=== PATIENT | female | born 1980 | race Caucasian/White ===

== ENCOUNTER 2020-04-01 21:53 | Emergency (ER) | payer BC, SELFPAY ==
[2020-04-01 21:54] VITALS: BP 149/73; PULSE 67; RESP 18; TEMP 36.5; O2SAT 100; BMI 30.7
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
[2020-04-01] MEDS: Ondansetron ODT 4 MG Tablet PO (22:51)
[2020-04-01] MEDS: Ibuprofen 600 MG Tablet PO (22:52)
[2020-04-01] MEDS: HYDROcodone Bitartrate/Apap 5/325 Tablet PO (22:53)
[2020-04-01] MEDS: Diphth,Pertuss(Acell),Tet Vac 0.5 ML Vial IM (22:53)
== END 2020-04-01 23:30 | disposition home or self-care (01) ==
LOC: ED 22:42
PROVIDERS: Emergency Provider Emergency Medicine; PCP Family Medicine
DX: T23.232A Burn of second degree of multiple left fingers (nail), not including thumb, initial encounter (principal); T23.231A Burn of second degree of multiple right fingers (nail), not including thumb, initial encounter; T23.162A Burn of first degree of back of left hand, initial encounter; T23.161A Burn of first degree of back of right hand, initial encounter; T31.0 Burns involving less than 10% of body surface; Z23 Encounter for immunization
CPT/HCPCS: 90715; 96372; 99283

== ENCOUNTER 2021-03-13 19:07 | Emergency (ER) | payer BC, SELFPAY ==
[2021-03-13 19:09] VITALS: BP 131/78; PULSE 64; RESP 14; TEMP 36; O2SAT 98; BMI 32.1
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
== END 2021-03-13 20:07 | disposition home or self-care (01) ==
PROVIDERS: Emergency Provider Emergency Medicine; PCP Family Medicine
DX: S90.01XA Contusion of right ankle, initial encounter (principal); W55.12XA Struck by horse, initial encounter; Y93.52 Activity, horseback riding; Y92.89 Other specified places as the place of occurrence of the external cause; Y99.8 Other external cause status
CPT/HCPCS: 73610; 99282

== ENCOUNTER → 2021-03-30 14:50 | Outpatient (CLI) | payer BC, SELFPAY ==
[2021-03-13 19:09] VITALS: BMI 32.1
--- NOTE | 2021-03-30 14:52 | RAD_ITS ---
STUDY: X-RAY - RIGHT FOOT CLINICAL: Female, 40 years old. Right foot pain. TECHNIQUE: 3 view(s) of the foot. COMPARISON: None. FINDINGS: Small inferior calcaneal spur. Normal visualized subtalar, talonavicular, calcaneocuboid, tarsal and tarsometatarsal articulations. Normal metatarsi. Normal metatarsophalangeal joint of the great toe. Normal tibial and fibular sesamoid bones. Normal interphalangeal joint of the great toe. Normal phalanges of the great toe. Normal second through fifth metatarsophalangeal joints. Normal interphalangeal joints and phalanges of the lesser toes. The soft tissue structures are unremarkable. RAD/Foot min 3 Views IMPRESSION: Small inferior calcaneal spur. No acute abnormality, erosive changes or periostitis. Electronically Signed: Oliver Posada MD at 10:49 EDT , Service support ,
== END ==
LOC: MTRAD 14:51
PROVIDERS: PCP Family Medicine; Referring Provider Family Medicine; Visit Provider Family Medicine
DX: M79.671 Pain in right foot (principal)
CPT/HCPCS: 73630

== ENCOUNTER → 2021-07-22 07:50 | Outpatient (CLI) | payer BC, SELFPAY ==
[2021-07-22 10:56] LABS: Anion Gap 5 (5-15); BUN 14 mg/dL (7-18); BUN/Creat Ratio 19.7 RATIO (10-20); Calcium,Total 8.5 mg/dL (8.5-10.1); Chloride 107 mmol/L (98-107); Cholesterol 149 mg/dL (200); Creatinine, Serum 0.71 mg/dL (0.55-1.02); EST Glomerular Filtration Rate 97 mL/min (>60); Est Glom Filt Rate - Afr Amer 117 mL/min (>60); Glucose 92 mg/dL (74-106); High Density Lipoprotein 53 mg/dL; Potassium 3.9 mmol/L (3.5-5.1); Sodium Level 140 mmol/L (136-145); Triglycerides 112 mg/dL; Very Low Density Lipoprotein 22 mg/dL (5-40)
== END ==
PROVIDERS: PCP Family Medicine; Referring Provider Family Medicine; Visit Provider Family Medicine
DX: Z13.1 Encounter for screening for diabetes mellitus (principal); Z13.220 Encounter for screening for lipoid disorders
CPT/HCPCS: 36415; 80048; 80061

== ENCOUNTER → 2024-08-12 | Outpatient (CLI) | payer BC, SELFPAY ==
[2024-08-12 12:36] LABS: ALB/GLOB Ratio 0.9 RATIO (0.9-2.4); AST(SGOT) 17 U/L (15-37); Alanine Aminotransfer ALT/SGPT 18 U/L (13-56); Albumin, Serum 3.1 g/dL (3.2-5.0); Alkaline Phosphatase 70 U/L (45-117); Anion Gap 6 (5-15); BUN 12 mg/dL (7-18); BUN/Creat Ratio 15.3 RATIO (10-20); Calcium,Total 8.7 mg/dL (8.5-10.1); Chloride 108 mmol/L (98-107); Creatinine, Serum 0.78 mg/dL (0.55-1.02); EST Glomerular Filtration Rate 85 mL/min (>60); Est Glom Filt Rate - Afr Amer 103 mL/min (>60); Globulin 3.4 g/dL (2.2-4.2); Glucose 91 mg/dL (74-106); Potassium 3.5 mmol/L (3.5-5.1); Protein, Total 6.5 g/dL (6.4-8.2); Sodium Level 139 mmol/L (136-145)
== END | disposition home or self-care (01) ==
LOC: MFPLAB 09:24
PROVIDERS: PCP Family Medicine; Referring Provider Family Medicine; Visit Provider Family Medicine
DX: R10.13 Epigastric pain (principal)
CPT/HCPCS: 36415; 80053

== ENCOUNTER → 2024-09-12 | Outpatient (CLI) | payer BC, SELFPAY | END | disposition home or self-care (01) | PROVIDERS: PCP Family Medicine; Referring Provider Family Medicine; Visit Provider Family Medicine | DX: R13.10 Dysphagia, unspecified (principal) | CPT/HCPCS: 74221 ==

== ENCOUNTER 2025-03-28 11:44 | Day surgery (SDC) | payer BC, SELFPAY ==
[2025-03-28] VITALS (9 sets, daily range): BP systolic 93–127; BP diastolic 61–90; PULSE 50–77; RESP 16–18; TEMP 36.1–36.8; O2SAT 95–100; BMI 31.5
[2025-03-28] MEDS: Lactated Ringers 1,000 ML 15 ML IV (12:11)
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
--- NOTE | 2025-03-28 12:30 | EGD_PTH ---
PATIENT: LIZZ STAUFFER LOC: EN U#:[id number] AGE/SX: 44/F ROOM: RE03/28/[address]: Dr. Bowen Rodgers DO : 1980 BED: DIS: 03/28/2025 SPEC #: [id number] RECD: 03/28/25 13:41 STATUS: CHENTE REShawn #: [id number] NING: 03/28/25 12:[address]: Bowen Rodgers DEPT: SURGICAL PATHOLOGY RECD BY: Shaheed Pardo ENTERED: 03/28/25 15:41 SP TYPE: EGD BIOPSY JEREMIAH DR: Dr. Kb Silver MD Tissues: A - Gastric mucous membrane B - Gastric mucous membrane C - Esophagus, NOS Procedures: Immunohistochemical Stains Surgery Specimen Level IV HEADER OPERATION: EGD with biopsies and dilation PRE-OP DIAGNOSIS: Dysphagia, epigastric pain, nausea TISSUE SUBMITTED: A- Gastric antrum biopsy, B- Gastric body biopsy, C- Random esophagus biopsy MICROSCOPIC DIAGNOSIS A. Gastric antrum, biopsy: - Chronic gastritis with features of reactive gastropathy. - Focal intestinal metaplasia, negative for dysplasia. - IHC negative for H pylori organisms. B. Gastric body, biopsy: Mild chronic inflammation. Negative for Helicobacter-like organisms (H&E). C. Esophagus, random, biopsy: * Squamous mucosa negative for eosinophils. MICROSCOPIC DESCRIPTION Slides are reviewed. All matched controls reacted appropriately. These tests were developed and their performance characteristics determined by [facility]. They may not have been cleared or approved by the U.S. Food and Drug Administration. The FDA has determined that such clearance or approval is not necessary. The above immunohistochemical/dualISH markers are viewed by the Pathologist. GROSS DESCRIPTION A. Received in fixative is one container labeled with the patient's name and designated Gastric antrum biopsy. The specimen consists of two irregular fragments of light escobedo soft tissue that measure 0.3 and 1.0 cm. The specimen is totally submitted in one cassette. B. Received in fixative is one container labeled with the patient's name and designated Gastric body biopsy. The specimen consists of four irregular fragments of light escobedo soft tissue that measure <0.1 to 0.5 cm. Smaller fragments may not survive processing. The specimen is totally submitted in one cassette. C. Received in fixative is one container labeled with the patient's name and designated Random esophagus biopsy. The specimen consists of multiple irregular fragments of light escobedo soft tissue that in aggregate measure 0.4 x 0.4 x <0.1 cm. The specimen is totally submitted in one cassette. IN 03/28/2025 CPT:63125r3,[id number]
--- NOTE | 2025-03-28 12:44 | PRE.ANES_ITS ---
ASA Classification* ASA Classification ASA Classification: 2 Assessment & Plan Anesthesia* Anesthesia Assessment Anesthesia Assessment: Discussed sedation and/or anesthesia options, risks, benefits, and alternatives with patient/parents/legal guardian/POA. Questions invited. The patient/parents/legal guardian/POA seems to understand and agrees to proceed with anesthesia plan. Reviewed the physical assessment, medical history, allergy history and patient home medications list prior to surgery/procedure/anesthetic and documented any changes. Performed airway and anesthesia risk assessments. Anesthesia Type Anesthesia Type: MAC History Source History Obtained from:: Patient and Chart Anesthesia Focused Assessment* Temperature: 97.3 F Pulse Rate: 77 Blood Pressure: 127/90 Respiratory Rate: 18 Pulse Ox: 98 Oxygen Delivery Method: Room Air Airway Assessment Mouth opens: >3 cm Mallampati Score: IV Teeth Condition: Caps/Crowns (Patient has a couple crowns. 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 When Was Last Pacemaker Check QUESTION #4 FULL TEXT: You/Your Family Experience fever (hyperthermia) with Anesthesia Last Oral Intake Last Oral intake: Last Oral Intake NPO since 22:30 03/28/25 12:01 Meds taken in AM with sips of water? 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 Female Yes 03/25/25 10:13 HX of Motion Sickness Yes 03/25/25 10:13 HX of N/V After Surgery No 03/25/25 10:13 Non-Smoker Yes 03/25/25 10:13 Duration of Surgery greater No 03/25/25 10:13 than 60 minutes Number of Risk Factors 3 03/25/25 10:13 PONV Score Moderate Risk 03/25/25 10:13 Height & Weight Height & Weight: Anesthesia: Height & Weight Height 5 ft 5 in 03/28/25 12:01 Weight: 86 kg 03/28/25 12:01 Body Mass Index (BMI) 31.5 03/28/25 12:01 Respiratory Assessment Respiratory Assessment - yard labor supervisor: Respiratory Tract Infection Hx - yard labor supervisor Hx Respiratory Tract Infection No 03/25/25 10:13 STOP Sleep Apnea STOP Sleep Apnea - yard labor supervisor: STOP Sleep Apnea - yard labor supervisor Hx Hypertension No 03/25/25 10:13 Hx Sleep Apnea No 03/25/25 10:13 CPAP BIPAP Do you snore loudly (louder No 03/25/25 10:13 than talking or can be heard Do you often feel tired/ No 03/25/25 10:13 fatigued/ sleepy during daytime? Has anyone observed you stop No 03/25/25 10:13 breathing during sleep? STOP Results Negative 03/25/25 10:13 QUESTION #5 FULL TEXT : Do you snore loudly (louder than talking or can be heard through closed doors)? 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 Specify any problems Hx of Preganancy in last 3 No 03/25/25 10:13 Months Nurse Filling Out Transfusion [id number] 03/25/25 10:13 & Questions: Date: 03/25/25 03/25/25 10:13 Time: 10:15 03/25/25 10:13 Patient unable to answer at this time (ie. confused, unrespo /Reproduction History /Reproductive History - yard labor supervisor: /Reproductive Hx- yard labor supervisor Hx Now No 03/25/25 10:13 Gestational Age (in weeks): EDC: Hx Hx Para Hx Section SAB No 03/25/25 10:13 Active Medications Active Medications: Current Medications Generic Name Dose Route Start Last Admin Trade Name Freq PRN Reason Stop Dose Admin Lactated Ringer's 1,000 mls @ 15 mls/hr 03/28/25 12:00 03/28/25 12:11 IV 15 mls/hr .Q48H QUEENIE Administration PFSH Medical History Wears contact lenses Anxiety Chronic cough Non-smoker Gastric reflux Chronic sinusitis Plantar fasciitis Burn of left hand Home Medications ?Medication ?Instructions ?Recorded ?Last Taken ?Type fexofenadine 60 mg tablet (Tana 60 mg PO BID 03/27/25 History Allergy) fluticasone propionate 50 1 spray intranasal QDAY 12/1303/27/25 History mcg/actuation nasal spray,suspension hydroxyzine pamoate 25 mg capsule 25 mg PO TID PRN anx iety 01/22/25 Unknown History (Vistaril) multivitamin 1 tab PO QDAY 01/22/2503/27 History desogestrel 0.15 mg-ethinyl 1 tab PO QDAY 01/23/2503/14 History estradiol 0.03 mg tablet (Apri) pantoprazole 40 mg tablet,delayed 40 mg PO QDAY 03/27/25 History release (Protonix) sucralfate 1 gram tablet (Carafate) 1 g PO QACHS PRN e pigastric pain 01/23/25 Unknown Rx #60 tabs Allergy/AdvReac Type Severity Reaction Status Date / Time influenza A (H1N1) virus Allergy Severe Anaphylaxis Verified 03/28/25 11:59 vaccine m-torres-split 2008 (From influenza A (H1N1)) adhesive tape Allergy Rash Verified 03/28/25 11:59 cefuroxime (From Ceftin) Allergy Rash Verified 03/28/25 11:59 Penicillins Allergy Rash Verified 03/28/25 11:59 codeine AdvReac Vomiting Verified 03/28/25 11:59 hydrocodone (From Vicodin) AdvReac Vomiting Verified 03/28/25 11:59 oxycodone (From Percocet) AdvReac PT UNSURE Verified 03/28/25 11:59 OF REACTION Family History Aunt Cancer Brother Hypertension Obesity Grandfather CAD (coronary artery disease) Hypertension Arthritis CVA (cerebral vascular accident) Alcoholism Kidney disease Grandmother Diabetes Cancer Arthritis Breast cancer Obesity Father Arthritis Diabetes Obesity Mother Hypertension Diabetes Arthritis Obesity Cancer Surgical History History of tonsillectomy H/O adenoidectomy H/O myringotomy H/O fasciotomy History of elbow surgery H/O knee surgery H/O tubal ligation Social History Smoking Status: Never smoker alcohol intake: current alcohol intake frequency: holidays/special occasions only substance use type: does not use what type of physical activity do you participate in: walking Review of Systems (Anesthesia) ROS Narrative System reviewed and no additional complaints, except as documented.
[2025-03-28] MEDS: fentaNYL 100 MCG/2 ML Ampul IV (13:10)
--- NOTE | 2025-03-28 13:32 | PCM.POST.ANE ---
Anesthesia: Postop Eval I Current Vital Signs Temperature: 96.9 F Pulse Rate: 63 Blood Pressure: 110/77 Respiratory Rate: 18 Pulse Ox: 95 Assessment Airway patent: Yes Spontaneous unlabored respirations: Yes nausea: No Vomiting: No Anesthesia Complication: No Fluid Hydration Crystalloid volume administer (ml): 200 Total IV fluid infused: 200 Progress Note Anesthesia document: Postop Eval 1 completed: Yes
--- NOTE | 2025-03-28 13:36 | OP.PROVAT_ITS ---
03/28/2025 Timothy Silver [address] [place] [address] Re : Upper GI endoscopy procedure for Laury Jimenez Dear Dr. Silver This procedure was performed on Friday, March 28, 2025. My impressions and recommendations are as follows: Impressions : - Abnormal esophageal motility. Dilated. - No gross lesions in the entire stomach. Biopsied. - No gross lesions in the entire examined duodenum. - Biopsies were taken with a cold forceps for evaluation of eosinophilic esophagitis. Recommendations : - Discharge patient to home. - Resume previous diet. - Continue present medications. - Await pathology results. My findings are described in the full procedure note, which is enclosed. If I can be of further assistance, please feel free to contact me at . Sincerely, Bowen Rodgers, 03/28/2025 1:35:49 PM This report has been signed electronically.
--- NOTE | 2025-03-28 13:36 | OP.EGD_ITS ---
Patient Name: Laury Jimenez Procedure Date: 03/28/2025 1:07 PM Date of : 1980 Age: 44 Procedure: Upper GI endoscopy Indications: Epigastric abdominal pain, Dysphagia Providers: Bowen Rodgers DO Referring MD: Timothy Silver Medicines: Monitored Anesthesia Care Patient Profile: This is a 44 year old female. Refer to note in patient chart for documentation of history and physical. Patient has symptoms of chronic abdominal distention, chronic epigastric abdominal pain, dysphagia with both liquids and solids, acute dyspepsia and chronic nausea. Complications: No immediate complications. Procedure: Pre-Anesthesia Assessment: - Prior to the procedure, a History and Physical was performed, and patient medications and allergies were reviewed. The patient is competent. The risks and benefits of the procedure and the sedation options and risks were discussed with the patient. All questions were answered and informed consent was obtained. Patient identification and proposed procedure were verified by the physician in the pre-procedure area. Mental Status Examination: alert and oriented. Airway Examination: normal oropharyngeal airway and neck mobility. Respiratory Examination: clear to auscultation. CV Examination: normal. Prophylactic Antibiotics: The patient does not require prophylactic antibiotics. Prior Anticoagulants: The patient has taken no anticoagulant or antiplatelet agents except for NSAID medication. ASA Grade Assessment: II - A patient with mild systemic disease. After reviewing the risks and benefits, the patient was deemed in satisfactory condition to undergo the procedure. The anesthesia plan was to use monitored anesthesia care (MAC). Immediately prior to administration of medications, the patient was re-assessed for adequacy to receive sedatives. The heart rate, respiratory rate, oxygen saturations, blood pressure, adequacy of pulmonary ventilation, and response to care were monitored throughout the procedure. The physical status of the patient was re-assessed after the procedure. After obtaining informed consent, the endoscope was passed under direct vision. Throughout the procedure, the patient's blood pressure, pulse, and oxygen saturations were monitored continuously. The gastroscope was introduced through the mouth, and advanced to the second part of duodenum. The upper GI endoscopy was accomplished without difficulty. The patient tolerated the procedure well. Scope In: 1:14:41 PM Scope Out: 1:23:44 PM Total Procedure Duration Time 0 hours 9 minutes 3 seconds Findings: Abnormal motility was noted in the esophagus. The cricopharyngeus was abnormal. There are extra peristaltic waves in the esophageal body. The distal esophagus/lower esophageal sphincter is spastic, but gives up passage to the endoscope. Tertiary peristaltic waves are noted. A guidewire was placed and the scope was withdrawn. Dilation was performed with a Savary dilator with no resistance at 57 Fr. The dilation site was examined and showed moderate improvement in luminal narrowing. Estimated blood loss was minimal. Biopsies were obtained from the proximal and distal esophagus with cold forceps for histology of suspected eosinophilic esophagitis. No gross lesions were noted in the entire examined stomach. Biopsies were taken with a cold forceps for histology. Verification of patient identification for the specimen was done. Estimated blood loss was minimal. Biopsies were taken with a cold forceps for Helicobacter pylori testing. Verification of patient identification for the specimen was done. Estimated blood loss was minimal. No gross lesions were noted in the entire examined duodenum. Impression: - Abnormal esophageal motility. Dilated. - No gross lesions in the entire stomach. Biopsied. - No gross lesions in the entire examined duodenum. - Biopsies were taken with a cold forceps for evaluation of eosinophilic esophagitis. Recommendation: - Discharge patient to home. - Resume previous diet. - Continue present medications. - Await pathology results. Procedure Code(s): --- Professional --- 29888, Esophagogastroduodenoscopy, flexible, transoral; with insertion of guide wire followed by passage of dilator(s) through esophagus over guide wire 33097, 59,51, Esophagogastroduodenoscopy, flexible, transoral; with biopsy, single or multiple CPT copyright 2021 [employer]. All rights reserved. The codes documented in this report are preliminary and upon edge trimmer review may be revised to meet current compliance requirements. Bowen Rodgers DO 03/28/2025 1:35:49 PM This report has been signed electronically. Number of Addenda: 0 Note Initiated On: 03/28/2025 1:07 PM
== END 2025-03-28 14:16 | disposition home or self-care (01) ==
LOC: EN 11:45 → AC 11:47
PROVIDERS: PCP Family Medicine; Referring Provider Family Medicine; Visit Provider Internal Medicine Gastroenterology
PROC: 0DJ08ZZ Inspection of Upper Intestinal Tract, Via Natural or Artificial Opening Endoscopic (ICD-10-PCS; CPT 43235; principal; 2025-03-28 12:25)
DX: K22.4 Dyskinesia of esophagus (principal); K31.A11 Gastric intestinal metaplasia without dysplasia, involving the antrum; R13.10 Dysphagia, unspecified; K29.50 Unspecified chronic gastritis without bleeding; K21.9 Gastro-esophageal reflux disease without esophagitis; Z79.899 Other long term (current) drug therapy
CPT/HCPCS: 43248; 43239; 88305; A4216; C1769; J2405

== ENCOUNTER 2025-04-04 23:44 | Emergency (ER) | payer BC, SELFPAY ==
[2025-04-04 23:46] VITALS: BP 129/82; PULSE 53; RESP 16; TEMP 36.8; O2SAT 100; BMI 32.1
--- NOTE | 2025-04-05 00:19 | ED.VIS.FALL ---
HPI HPI - Fall History of Present Illness Chief Complaint: Fall Informant: patient Narrative Narrative: 44-year-old female presents to the ER after an accidental fall. She was at home, she states she tripped over the dog and then the floor was wet causing her to slip as she skated into the couch and smacked her face into it, injuring her nose and had a nosebleed. She was blowing clots out of her nose prior to coming here, but the bleeding to stop now. She takes no antiplatelet or anticoagulants. She also injured her left middle finger and scraped her left knee but has had no problems standing or walking since then. She denies any significant pain in her face or head other than her nose which is sore. She denies any vision changes. There is no loss of consciousness, nausea, vomiting. No other injuries. She [id number]. [facility] Medical History Wears contact lenses Anxiety Chronic cough Non-smoker Gastric reflux Chronic sinusitis Plantar fasciitis Burn of left hand Home Medications ?Medication ?Instructions ?Recorded ?Last Taken ?Type fexofenadine 60 mg tablet (Tana 60 mg PO BID 01/22/25 03/27/25 History Allergy) fluticasone propionate 50 1 spray intranasal QDAY 01/22/25 03/27/25 History mcg/actuation nasal spray,suspension hydroxyzine pamoate 25 mg capsule 25 mg PO TID PRN anxiety 01/22/25 Unknown History (Vistaril) multivitamin 1 tab PO QDAY 01/22/25 03/27/25 History desogestrel 0.15 mg-ethinyl 1 tab PO QDAY 01/23/25 03/27/25 History estradiol 0.03 mg tablet (Apri) pantoprazole 40 mg tablet,delayed 40 mg PO QDAY 01/23/25 03/27/25 History release (Protonix) sucralfate 1 gram tablet (Carafate) 1 g PO QACHS PRN epigastric pain 01/23/25 Unknown Rx #60 tabs Allergy/AdvReac Type Severity Reaction Status Date / Time influenza A (H1N1) virus Allergy Severe Anaphylaxis Verified 04/04/25 23:45 vaccine m-torres-split 2008 (From influenza A (H1N1)) adhesive tape Allergy Rash Verified 04/04/25 23:45 cefuroxime (From Ceftin) Allergy Rash Verified 04/04/25 23:45 Penicillins Allergy Rash Verified 04/04/25 23:45 codeine AdvReac Vomiting Verified 04/04/25 23:45 hydrocodone (From Vicodin) AdvReac Vomiting Verified 04/04/25 23:45 oxycodone (From Percocet) AdvReac PT UNSURE Verified 04/04/25 23:45 OF REACTION Family History Aunt Cancer Brother Hypertension Obesity Grandfather CAD (coronary artery disease) Hypertension Arthritis CVA (cerebral vascular accident) Alcoholism Kidney disease Grandmother Diabetes Cancer Arthritis Breast cancer Obesity Father Arthritis Diabetes Obesity Mother Hypertension Diabetes Arthritis Obesity Cancer Surgical History History of tonsillectomy H/O adenoidectomy H/O myringotomy H/O fasciotomy History of elbow surgery H/O knee surgery H/O tubal ligation Social History Smoking Status: Never smoker alcohol intake: current alcohol intake frequency: holidays/special occasions only substance use type: does not use what type of physical activity do you participate in: walking ROS ROS ED Constitutional Constitutional ED: Denies chills or fever(s) Eyes Eyes: Denies change in vision or diplopia ENT ENT ED: Reports epistaxis and facial pain; Denies ear pain or rhinorrhea Cardiovascular Cardiovascular: Denies chest pain or palpitations Respiratory/Chest Respiratory/Chest: Denies cough or dyspnea Gastrointestinal Gastrointestinal: Denies abdominal pain, diarrhea, melena, nausea or vomiting Genitourinary Genitourinary ED: Denies dysuria or hematuria Musculoskeletal Musculoskeletal: Reports extremity pain; Denies back pain or neck pain Integumentary Reports Abrasions; Denies abscess, laceration or rash Neurologic Neurologic: Denies confusion, headache(s), paresthesias or weakness EXAM Physical Exam Const Vital Signs: 04/04/25 23:46 04/04/25 23:49 Temperature 98.3 F Temperature Source Oral Pulse Rate 53 L Respiratory Rate 16 Respiratory Effort Normal Non-Labored Respiratory Depth Normal Respiratory Pattern Normal Blood Pressure 129/82 H Blood Pressure Mean 97 Pulse Ox 100 Oxygen Delivery Method Room Air Positive well nourished and well developed General Appearance ED: well developed and NAD HEENT Reports nasal mucous membranes and turbinates normal HEENT Narrative: No Lincoln sign, no raccoon eyes, no CSF otorhinorrhea, no hemotympanum. 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 There are scars in both TMs. There is no otorrhea. She has nasal bone tenderness without swelling, asymmetry, crepitance. The tenderness is mild. There is evidence of dried blood in both nares no active bleeding. No septal hematoma or perforation. No posterior oropharyngeal blood, no dental injury, no mid facial tenderness other than the nose. No signs of orbital trauma. atraumatic Face and Sinus: facial tenderness Eyes PERRL and EOMs intact bilaterally Visual Acuity: other Other Details: no entrapment or pain with extraocular movements Neck full ROM and supple General: Negative for tenderness Chest Wall inspection of chest normal and palpation of chest normal Chest: symmetrical chest wall rise; Negative for crepitus or tenderness Resp normal respiratory effort and clear to auscultation bilaterally Percussion: other equal BS bilat Cardio no murmurs Rate: regular rate Rhythm: regular rhythm GI normal to inspection, nondistended, normoactive bowel sounds, soft to palpation and non-tender Back/Spine normal ROM Cervical Spine: Negative for cervical spine tenderness Thoracic Spine / Upper Back: Negative for thoracic spinal tenderness Lumbar Spine / Lower Back: Negative for lumbar spinal tenderness Extremity normal to inspection and full ROM Extremity Narrative: Tender left middle finger PIPJ and distal phalanx. There is a mild valgus deformity at the DIPJ that the patient states is chronic and no different than usual. FDS, FDP, extensor are all intact. Full range of motion of that finger and all of the rest which are noninjured nontender. There is an abrasion over the lateral aspect of the left anterior knee, the bones are all nontender there is no effusion, she has full range of motion, all ligaments are stable and without pain on stressing. General Extremety ED: Yes tenderness Neuro oriented x3, CN's II-XII intact bilaterally, moves all extremities, no focal motor deficits and no sensory deficits noted Zenon Coma Scale: document GCS findings Spontaneous Obeys Commands Oriented 15 Sensorium / Orientation: awake and alert Psych mental status grossly normal and thought process normal Skin no wounds Skin Narrative: Abrasion left knee otherwise no signs of trauma. Lesions: no lesions Rashes: no rashes MDM MDM MDM Narrative Medical decision making narrative: Patient does not have any swelling or asymmetry of the nose, my suspicion for nasal fracture is low. However, I discussed with her that even if it is broken and the treatment recommendations would be the same which is supportive care. I reassured her she can have epistaxis without breaking her nasal bone. I am not worried about the rest of the midface or any other facial bones, so I do not think that she requires a CT or imaging of the nose at this time and we discussed that she is comfortable with that. We did obtain three-view x-ray series of the left middle finger which I am interpretation are negative for acute fractures. Her knee is scraped but there is no significant injury to it so we skipped x-rays and she was comfortable with that. Nurses cleansed and dressed that, she was given ibuprofen, and ENT referral just in case she has any cosmetic issues that were not discovered here with regards to her nose. Discharge Plan Triage Chief Complaint: Fall Other Complaint: Nosebleed ED Provider: Mohamud Pham Dx/Rx/DC Orders Clinical Impression: Epistaxis due to trauma, Contusion of nose, initial encounter, Contusion of left middle finger without damage to nail, initial encounter, Abrasion, left knee, initial encounter, Fall from slip, trip, or stumble Instructions: ED NASAL CONTUSION vs FX No X-ray Prescriptions: No Action multivitamin Tablet 1 tab PO QDAY fluticasone propionate 50 mcg/actuation spray,suspension 1 spray intranasal QDAY Rx Instructions: administer into each nostril hydroxyzine pamoate [Vistaril] 25 mg capsule 25 mg PO TID PRN (Reason: anxiety) fexofenadine [Tana Allergy] 60 mg tablet 60 mg PO BID desogestrel-ethinyl estradiol [Apri] 0.15-0.03 mg tablet 1 tab PO QDAY pantoprazole [Protonix] 40 mg tablet,delayed release (DR/EC) 40 mg PO QDAY sucralfate [Carafate] 1 gram tablet 1 g PO QACHS PRN (Reason: epigastric pain) Qty: 60 0RF Primary Care Provider: Kb Silver Referrals: Kb Silver MD [Primary Care Provider] - Elmer Tello MD [Med Staff - Active Staff] - 1 Week if not improving Activity Restrictions/Additional Instructions: Your nose is unlikely to be broken given the lack of swelling or asymmetry. If you develop any of this and you are concerned, you may either return to the ER for imaging, or follow-up with ENT if it does not go back to normal after a week. If you have nosebleeds that are not stopping return to the ER. In the meantime ice pack to the affected area, Tylenol and/or ibuprofen as needed for pain. Print Language: Yoruba Disposition Disposition: Home, Self Care
--- NOTE | 2025-04-05 00:20 | RAD_ITS ---
PROCEDURE: FINGER(S) MIN 2 VIEWS 04/05/2025 REASON FOR EXAM: TRAUMA TECHNIQUE: FINGER(S) MIN 2 VIEWS Laterality: Left COMPARISON: None FINDINGS: Bones: Acute questionable lucent fracture line is seen at the base of the middle phalanx of the 3rd finger, associated soft tissue swelling is seen. Joints: Preserved joints RAD/Finger(s) Min 2 Views IMPRESSION: Acute questionable lucent fracture line is seen at the base of the middle phala nx of the 3rd finger, associated soft tissue swelling . Reading [facility] [address]
--- OUTSIDE RECORDS SUMMARY | 2025-04-05 00:28 | XMS RPT_ITS | CCD ---
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 fluticasone propionate 50 1 spray intranasal QDAY 01/22/25 0 01/23/25 History mcg/actuation nasal spray,suspension hydroxyzine pamoate 25 mg capsule 25 mg PO TID 01/22/25 01/23/25 Hi story (Vistaril) multivitamin 1 tab PO QDAY 01/22/25 01/23/25 Hi story desogestrel 0.15 mg-ethinyl 1 tab PO QDAY 01/23/25 01/23/25 Hi story estradiol 0.03 mg tablet (Apri) pantoprazole 40 mg tablet,delayed 40 mg PO QDAY 01/23/25 01/23/25 H istory release (Protonix) sucralfate 1 gram tablet (Carafate) 1 g PO QACHS PRN epigastric curtis n 01/23/25 01/23/25 Rx #60 tabs Nurse's Note: Food gets stuck in her throat and has already choked before. Has some abdominal discomfort and nausea. [facility] History Chronic sinusitis Plantar fasciitis Burn of left hand Surgical History History of tonsillectomy H/O adenoidectomy H/O myringotomy H/O fasciotomy History of elbow surgery H/O knee surgery H/O tubal ligation Family History Aunt Cancer Brother Hypertension Obesity Grandfather CAD (coronary artery disease) Hypertension Arthritis CVA (cerebral vascular accident) Alcoholism Kidney disease Grandmother Diabetes Cancer Arthritis Breast cancer Obesity Father Arthritis Diabetes Obesity Mother Hypertension Diabetes Arthritis Obesity Cancer Social History Smoking Status: Never smoker alcohol intake: current alcohol intake frequency: holidays/special occasions only substance use type: does not use what type of physical activity do you participate in: walking HPI HPI Chief Complaint: food gets stuck in my throat Details: LAURY JIMENEZ, is a 44 F who presents to the office today for Laura - >1 year stomach pain, reports she was taking her husbands Omeprazole 40mg daily, this did not help, epigastric and LUQ, burning/aching/stabbi ng, no change with PO intake - reports pain was constant, but since August she is only having pain a few days a month - Carafate 1g tablets QID, 10d course and this did help - Protonix 40mg QD - reports a long history of upper esophageal dysphagia - reports a Esophagram August 2024 was negative + nausea - emesis - denies any weight loss - little caffeine intake - denies smoking - denies any marijuana use - limited alcohol use - no change in bowel habits ROS Const Constitutional: No fatigue, fever(s) or weight change ENT ENT: No difficulty swallowing Gastro GI: No abdominal pain, belching, bloating, change in bowel habits, change in stool character, coffee ground emesis, constipation, cramping, diarrhea, heartburn, difficulty swallowing, feeling full early, excessive flatus, incontinent of stools, Vomiting blood/hematemesis, Blood in stool, loose stools, Black,tarry stools, nausea/dyspepsia, pain with swallowing, vomiting or other Musc Musculoskeletal: No joint pain Skin Skin: No yellowing of the eye or itchy eyes Psych Psychiatric: No anxiety and No depression Endo Endocrine: No fatigue or weight change Aller/Imm Allergy/Immunologic: No itchy eyes Paulino/Lymp (more content not included)... Normal [facility] CNOVon 10-07-2024 CNOV Office Visit (OBGYWM ) LAURY JIMENEZ E ([id number]) 1980 F Date Time Provider Department 10/07/24 1:00 PM KAYLA CADET OBGYWM During your visit today, we recorded the following information about you: Blood pressure Weight Height 124/76 88.5 kg 1.651 m Kayla Cadet APRN.ACCOUNT SPECIALIST 10/07/2024 2:34 PM Signed Patient declined bill adjuster. Laura is a 44 year old who presents for an annual gynecologic exam without complaints. Isaiah had 3 wks of spotting nothing since Menses: no menses - continuous OCPs. Contraception: tubal sterilization HPV vaccine: No Last Pap: 09/2023 normal HPV: 09/2023 negative History of abnormal pap: Yes Last mammogram: 2024 pending Sexually active: Yes Pain with intercourse: No Postcoital bleeding: No OB History Gravida3 Para2 Term2 Preterm0 AB1 Living2 SAB1 IAB0 Ectopic0 Multiple0 Live Births0 Comment: Menarche 11, lmp 12/18/2010 Facilities Painter History LMP: 01/10/2021, Drug Induced Amenorrhea Age at Menarche: 11 Age at First : Age at Menopause: Facilities Painter History Comments: Sexual Activity: Yes; Male Contraception: Tubal Ligation PAST MEDICAL HISTORY Diagnosis Date Abnormal Pap smear 10/2008 follows with [facility] Women's health Cervical high risk human papillomavirus (HPV) DNA test positive Mild dysplasia of cervix (EMILEE I) colposcopy with bx Nipple discharge in female 09/2010 green PAST SURGICAL HISTORY Procedure Laterality Date ARTHROSCOPY KNEE SURGICAL W/LAT RELEASE 08/21/2008 left knee -Dr. Fahad SUBRAMANIAN OF CERVIX INC UPPER VAG PAST SURGICAL HISTORY OF 04/21/2011 Left foot Plantar PAST SURGICAL HISTORY OF Left 08/2019 left elbow tendon repair TONSILLECTOMY AND ADENOIDECTOMY TUBAL LIGATION, 08/21/2007 TYMPANOSTOMY LOCAL/TOPICAL ANESTHESIA x 3 FAMILY HISTORY Problem Relation Age of Onset Allergies Mother Cancer Mother endometrial -- 58 Diabetes Mother Lipids Father Diabetes Father prediabetes Cancer Maternal Grandmother brain and lung Diabetes Maternal Grandmother Breast Cancer Paternal Grandmother Heart Paternal Grandfather arrythmia Cancer Maternal Aunt thyroid SOCIAL HISTORY Social History Tobacco Use Smoking status: Never Smokeless tobacco: Never Vaping Use Vaping status: Never Used Substance Use Topics Alcohol use: Yes Comment: Occassionally Drug use: No REVIEW OF SYSTEMS Abdomen: No abdominal pain, nausea, vomiting, diarrhea, or constipation. No bloating, early satiety, indigestion, or increased flatulence. Bladder: No dysuria, gross hematuria, urinary frequency, urinary urgency, or incontinence. Breast: No breast lumps, nipple d/c, overlying skin changes, redness or skin retraction. Allergies and current medication updated:Yes SENSITIVE EXAM: The sensitive examination was discussed with the Patient or Patient's Authorized Security Project Manager. As applicable, any other physician, advance practice provider, medical student, or other health professional student that will be observing or involved in the sensitive examination for educational or training purposes was discussed with the Patient or Authorized Security Project Manager. The Patient or Authorized Security Project Manager has agreed to proceed with the sensitive examination. (Sensitive examination includes inspection and/or palpation of the breasts, pelvis, prostate and anorectal regions). EXAM: BP 124/76 Ht 5' 5 (1.65m) Wt 195 lb 3.2 oz (88.5kg) LMP 01/10/2021 BMI 32.48 kg/(m2). GENERAL: pleasant, female in no apparent distress HEENT: Normocephalic, atraumatic, mucus membranes moist, and no lesions DERMATOLOGY: Normal, without lesions, non-icteric, and non-hirsute BREAST: soft, non-tender, symmetric, no dominant mass, normal nipple-areolar complex, no lymphadenopathy, and no nipple discharge CHEST: Normal inspiratory effort ABDOMEN: soft, non-tender, and no masses PELVIC: external genitalia normal, normal Bartholin's glands, urethra, [place]'s glands, no vulvar lesions, no cervical lesions, physiologic discharge present, normal appearing perineal body and perianal region BIMANUAL: uterus normal size, shape and consistency, no adnexal masses, and non-tender RECTOVAGINAL: deferred. NEURO: alert and oriented x3,exam grossly non-focal EXTREMITIES: normal ASSESSMENT/PLAN: 1) Health maintenance: Pap/HPV up to date. Mammogram up to date . Nutrition, exercise and routine health maintenance exams reviewed. Calcium/Vitamin D supplementation information provided. Colon cancer screening: start at age 45 2) Contraception: tubal sterilization. Contraceptive options reviewed and information provided. 3) STD screening: Declined STD check. 4) Follow up one year or sooner as needed Kayla Helio, PASTRYCOOK'S ASSISTANT.ACCOUNT SPECIALIST Referring Provider: KAYLA CADET [[id number]] Allergies As of Date: 10/07/2024 Noted Allergy Reaction ADHESIVE T (more content not included)... Normal [facility] BONY SCREENING W TOMOon 10-07 BONY SCREENING W UMAIR * * *Final Report* * * DATE OF EXAM: Oct 07 2024 12:59PM [id number] - BONY SCREENING W UMAIR / PROCEDURE REASON: Encounter for screening mammogram for breast cancer * * * * Physician Interpretation * * * * RESULT: [facility] [address] [id number] #[id number] - BONY SCREENING W UMAIR HISTORY: 44 year-old patient seen for screening and is asymptomatic in both breasts. Patient states no personal history of breast cancer. Patient states no personal history of ovarian cancer. COMPARISON STUDIES: The present examination has been compared to a prior imaging study dated 11/19/2021 (mammogram). MAMMOGRAM TECHNIQUE: The study was acquired using full field digital technology and interpreted from soft copy. Digital Breast Tomosynthesis (DBT) images were obtained and used to assist in the interpretation of this examination. MAMMOGRAM FINDINGS: The breasts are heterogeneously dense, which may obscure small masses. No suspicious masses, calcifications or other abnormalities are seen in either breast. There are no significant interval changes. IMPRESSION: There is no mammographic evidence of malignancy in either breast. Routine screening mammogram is recommended. Annual mammogram will be due in 1 year. BI-RADS Category 1: Negative RISK: Based on the Tyrer-Cuzick (TC) risk assessment model, this patient has a 15.0% lifetime risk of developing breast cancer, meaning they are at average risk for developing breast cancer. However, this is only an estimate based on available history provided on the patient's questionnaire. We encourage all patients to talk with their providers about these results, further recommendations for managing breast health, and appropriate supplemental screening options if the patient has dense breast tissue. Interpreting Radiologist: Lore Lucas M.D. Electronically signed on: 10/08/2024 Steel Fabricating Supervisor: JENNIFER Transcribe Date/Time: Oct 07 2024 12:30P Dictated by: LORE LUCAS MD This examination was interpreted and the report reviewed and electronically signed by: LORE LUCAS MD on Oct 08 2024 8:05AM EST [id number] N Normal [facility] Esophagus Dual Contraston Esophagus Dual Contrast [facility] [address] [place] [address] Esophagus Dual Contrast MR#: [id number] Acct: [id number] Name: LAURY JIMENEZ Rep #: [id number] : 1980 F 43 From: Bradley joseph MD PCP: Dr. Kb Silver MD Status: [facility] CL Study: Esophagus Dual Contrast Date of Exam: 09/12/24 Exam# [id number] Ordering Dr: Kb Silver D [id number] STUDY: X-RAY - ESOPHAGUS (BARIUM SWALLOW) WITH FLUOROSCOPY REASON FOR EXAM: Female, 43 years old. Dysphagia TECHNIQUE: 38 fluoroscopic view(s) of the esophagus were obtained following swallowing of barium. FLUOROSCOPY TIME (if supplied): (33 seconds) minutes/seconds. 3.7 mGy. COMPARISON: None. FINDINGS: There is no demonstrated esophageal foreign body. There is no demonstrated stricture or mucosal abnormality. Normal gastroesophageal junction, without a demonstrated hiatal hernia. The patient ingested a 12 mm tablet of barium without any difficulty. Normal visualized aortic arch and descending thoracic aorta. Normal visualized pulmonary parenchyma. Normal visualized osseous structures of the thorax. RAD/Esophagus Dual Contrast IMPRESSION: Normal plain film x-ray examination (barium swallow) of the esophagus. Electronically Signed: Bradley Sorenson MD at 10:20 EST , CC: Dr. Kb Silver MD [employer] Fab[employer] Supervisor: Signed Normal [facility] Comprehensive Metabolic Prof ilon 08-12-2024 Albumin [Mass/Vol] 3.1 g/dL Low 3.2-5.0 [facility] Comment on above: Order Comment: Order Date: 08/12/24 Order Info: 0786-1 - CMP Performed By: #### L [id number] #### [facility] [address] [place], [address] Albumin/Globulin [Mass ratio] 0.9 {ratio} Normal 0.9-2.4 [facility] Comment on above: Order Comment: Order Date: 08/12/24 Order Info: 0786-1 - CMP Performed By: #### L [id number] #### [facility] [address] [place], [address] ALK P 70 U/L Normal 45-117 [facility] Comment on above: Order Comment: Order Date: 08/12/24 Order Info: 0786-1 - CMP Performed By: #### L [id number] #### [facility] [address] [place], [address] ALT [Catalytic activity/Vol] 18 U/L Normal 13-56 [facility] Comment on above: Order Comment: Order Date: 08/12/24 Order Info: 0786-1 - CMP Performed By: #### L [id number] #### [facility] [address] [place], [address] AST [Catalytic activity/Vol] 17 U/L Normal 15-37 [facility] Comment on above: Order Comment: Order Date: 08/12/24 Order Info: 0786-1 - CMP Performed By: #### L [id number] #### [facility] [address] [place], [address] Bilirubin [Mass/Vol] 0.80 mg/dL Normal 0.20-1.00 [facility] Comment on above: Order Comment: Order Date: 08/12/24 Order Info: 0786-1 - CMP Result Comment: For patients on eltrombopag therapy, use of Dimension [place] TBIL is not recommended. Performed By: #### L [id number] #### [facility] [address] [place], [address] BUN/CRE 15.3 RATIO Normal 10-20 [facility] Comment on above: Order Comment: Order Date: 08/12/24 Order Info: 0786-1 - CMP Performed By: #### L [id number] #### [facility] [address] [place], [address] CA,Total 8.7 mg/dL Normal 8.5-10.1 [facility] Comment on above: Order Comment: Order Date: 08/12/24 Order Info: 0786-1 - CMP Performed By: #### L [id number] #### [facility] [address] [place], [address] Chloride [Moles/Vol] 108 mmol/L High 98-107 [facility] Comment on above: Order Comment: Order Date: 08/12/24 Order Info: 0786-1 - CMP Performed By: #### L [id number] #### [facility] [address] [place], [address] CO2 [Moles/Vol] 25.0 mmol/L Normal 21.0-32.0 [facility] Comment on above: Order Comment: Order Date: 08/12/24 Order Info: 0786-1 - CMP Performed By: #### L [id number] #### [facility] [address] [place], [address] Creatinine [Mass/Vol] 0.78 mg/dL Normal 0.55-1.02 [facility] Comment on above: Order Comment: Order Date: 08/12/24 Order Info: 0786-1 - CMP Result Comment: The validity of the calculated GFR GFRAA in patients over 70 years has not been determined. Clinical correlation is essential. Performed By: #### L [id number] #### [facility] [address] [place], [address] EST GFR - AA 103 mL/min Normal >60 [facility] Comment on above: Order Comment: Order Date: 08/12/24 Order Info: 0786-1 - CMP Result Comment: Afri can Scottish GFR Calc Performed By: #### L [id number] #### [facility] [address] [place], [address] GAP 6 Normal 5-15 [facility] Comment on above: Order Comment: Order Date: 08/12/24 Order Info: 0786-1 - CMP Performed By: #### L [id number] #### [facility] [address] [place], [address] GFR/1.73 sq M.predicted among non-blacks MDRD (S/P/Bld) [Vol rate/Area] 85 mL/min/{1.73_m2} Normal >60 [facility] Comment on above: Order Comment: Order Date: 08/12/24 Order Info: 0786-1 - CMP Result Comment: Non- GFR Calc Performed By: #### L [id number] #### [facility] [address] [place], [address] Globulin (S) [Mass/Vol] 3.4 g/dL Normal 2.2-4.2 [facility] Comment on above: Order Comment: Order Date: 08/12/24 Order Info: 0786-1 - CMP Performed By: #### L [id number] #### [facility] [address] [place], [address] Glucose [Mass/Vol] 91 mg/dL Normal 74-106 [facility] Comment on above: Order Comment: Order Date: 08/12/24 Order Info: 0786-1 - CMP Performed By: #### L [id number] #### [facility] [address] [place], [place], [address] Potassium [Moles/Vol] 3.5 mmol/L Normal 3.5-5.1 [facility] Comment on above: Order Comment: Order Date: 08/12/24 Order Info: 0786-1 - CMP Performed By: #### L [id number] #### [facility] [address] [place], [address] Sodium [Moles/Vol] 139 mmol/L Normal 136-145 [facility] Comment on above: Order Comment: Order Date: 08/12/24 Order Info: 0786-1 - CMP Performed By: #### L [id number] #### [facility] [address] [place], [place], [address] T PROT 6.5 g/dL Normal 6.4-8.2 [facility] Comment on above: Order Comment: Order Date: 08/12/24 Order Info: 0786-1 - CMP Performed By: #### L [id number] #### [facility] [address] [place], [place], [address] Urea nitrogen [Mass/Vol] 12 mg/dL Normal 7-18 [facility] Comment on above: Order Comment: Order Date: 08/12/24 Order Info: 0786-1 - CMP Performed By: #### L [id number] #### [facility] [address] [place], [address] [facility] SCREENINGon 11-19-2021 [facility] Vital Signs Date Time Vital Sign Value Performing Clinician Beverly valenzuela 03-28-2025 13:49-0400 Body temperature 98.3 [degF] Dr. Kb Silver MD Work Phone: [facility] 03-28-2025 13:49-0400 Diastolic blood pressure 66 mm[Hg] Dr. Kb Silver MD Work Phone: 6(296)067-025239 [place] [address] 03-28-2025 13:49-0400 Heart rate 50 /min Dr. Kb Silver MD Work Phone: 1(346)395-571919 [place] [address] 03-28-2025 13:49-0400 Respiratory rate 16 /min Dr. Kb Silver MD Work Phone: 7(215)756-539819 [place] [address] 03-28-2025 13:49-0400 SaO2% (BldA) [Mass fraction] 100 % Dr. Kb Silver MD Work Phone: 6(625)754-362219 [place] [address] 03-28-2025 13:49-0400 Systolic blood pressure 110 mm[Hg] Dr. Kb Silver MD Work Phone: 1(821)420-251519 [place] [address] 03-28-2025 12:01-0400 Body height 165.[address] Kb Silver MD Work Phone: 7(263)909-991719 [place] [address] 03-28-2025 12:01-0400 Body mass index (BMI) [Ratio] 31.5 kg/m2 Dr. Kb Silver MD Work Phone: 8(770)964-750719 [place] [address] 03-28-2025 12:01-0400 Body weight [address] Kb Silver MD Work Phone: 4(930)415-689019 [place] [address] 01-23-2025 08:56-0400 Body height 165.[address] Kb Silver MD Work Phone: 8(969)726-891219 [place] [address] 01-23-2025 08:56-0400 Body mass index (BMI) [Ratio] 31.6 kg/m2 Dr. Kb Silver MD Work Phone: 2(873)910-960319 [place] [address] 01-23-2025 08:56-0400 Body weight 86.[address] Kb Silver MD Work Phone: 4(400)147-537719 [place] [address] 01-23-2025 08:56-0400 Diastolic blood pressure 85 mm[Hg] Dr. Kb Silver MD Work Phone: 7(393)068-107519 [place] [address] 01-23-2025 08:56-0400 Heart rate 75 /min Dr. Kb Silver MD Work Phone: [facility] 01-23-2025 08:56-0400 Respiratory rate 16 /min Dr. Kb Silver MD Work Phone: [facility] 01-23-2025 08:56-0400 SaO2% (BldA) [Mass fraction] 97 % Dr. Kb Silver MD Work Phone: [facility] 01-23-2025 08:56-0400 Systolic blood pressure 121 mm[Hg] Dr. Kb iSlver MD Work Phone: [facility] 10-07-2024 13:12-0500 Body height 165.1 cm Kayla Baltic PASTRYCOOK'S ASSISTANT.ACCOUNT SPECIALIST Work Phone: [facility] 10-07-2024 13:12-0500 Body mass index (BMI) [Ratio] 32.48 kg/m2 Kayla Helio PASTRYCOOK'S ASSISTANT.ACCOUNT SPECIALIST Work Phone: [facility] 10-07-2024 13:12-0500 Body weight 88.54 kg Kayla Helio PASTRYCOOK'S ASSISTANT.ACCOUNT SPECIALIST Work Phone: [facility] 10-07-2024 13:12-0500 Diastolic blood pressure 76 mm[Hg] Kayla Helio PASTRYCOOK'S ASSISTANT.ACCOUNT SPECIALIST Work Phone: [facility] 10-07-2024 13:12-0500 Systolic blood pressure 124 mm[Hg] Kayla Helio PASTRYCOOK'S ASSISTANT.ACCOUNT SPECIALIST Work Phone: [facility] 10-02-2023 13:23-0500 Body height 165.1 cm Kayla Baltic PASTRYCOOK'S ASSISTANT.ACCOUNT SPECIALIST Work Phone: [facility] 10-02-2023 13:23-0500 Body weight 86.18 kg Kayla Baltic PASTRYCOOK'S ASSISTANT.ACCOUNT SPECIALIST Work Phone: [facility] 10-02-2023 13:23-0500 Diastolic blood pressure 72 mm[Hg] Kayla Helio PASTRYCOOK'S ASSISTANT.ACCOUNT SPECIALIST Work Phone: [facility] 10-02-2023 13:23-0500 Systolic blood pressure 112 mm[Hg] Kayla Baltic PASTRYCOOK'S ASSISTANT.ACCOUNT SPECIALIST Work Phone: [facility] 11-09-2022 15:38-0400 Body temperature 98.6 [degF] Krislyn Aberegg PA Work Phone: [facility] 11-09-2022 15:38-0400 Body weight 88.63 kg Krislyn Aberegg PA Work Phone: [facility] 11-09-2022 15:38-0400 Diastolic blood pressure 74 mm[Hg] Krislyn Aberegg PA Work Phone: [facility] 11-09-2022 15:38-0400 Heart rate 60 /min Krislyn Aberegg PA Work Phone: [facility] 11-09-2022 15:38-0400 Respiratory rate 16 /min Krislyn Aberegg PA Work Phone: [facility] 11-09-2022 15:38-0400 SaO2% (BldA) [Mass fraction] 98 % Krislyn Aberegg PA Work Phone: [facility] 11-09-2022 15:38-0400 Systolic blood pressure 110 mm[Hg] Krislyn Aberegg PA Work Phone: [facility] 03-10-2022 14:31-0400 Body height 162.6 cm Kayla Baltic PASTRYCOOK'S ASSISTANT.ACCOUNT SPECIALIST Work Phone: [facility] 03-10-2022 14:31-0400 Body weight 86.91 kg Kayla Baltic PASTRYCOOK'S ASSISTANT.ACCOUNT SPECIALIST Work Phone: [facility] 03-10-2022 14:31-0400 Diastolic blood pressure 68 mm[Hg] Kayla Baltic PASTRYCOOK'S ASSISTANT.ACCOUNT SPECIALIST Work Phone: [facility] 03-10-2022 14:31-0400 Systolic blood pressure 100 mm[Hg] Kayla Helio PASTRYCOOK'S ASSISTANT.ACCOUNT SPECIALIST Work Phone: [facility] Encounters Encounter Date Encounter Type Care Provider Facility Start: 03-28-2025 Non-patient / Non-visit Bowen Farnsworth nd DO -[facility] Start: 03-28-2025 End: 03-28-2025 Admission to same day surgery center Bowen Rodgers -Endoscopy Work Phone: Start: 03-28-2025 End: 03-28-[address] Kb Silver MD Work Phone: -Endoscopy Start: 01-23-2025 End: 01-23-2025 Patient encounter procedure Heidi BECKHAM -[facility] Work Phone: Start: 01-23-2025 End: 01-23-[address] Kb Silver MD Work Phone: [facility] Work Phone: Start: 10-08-2024 End: 12-08-2024 Follow-up encounter Kayla Cadet APRN.ACCOUNT SPECIALIST Work Phone: OB/Gynecology Start: 10-07-2024 End: 10-07-2024 Patient encounter procedure Kayla Cadet APRN.ACCOUNT SPECIALIST Work Phone: OB/Gynecology Comment on above: Encounter for gyneco logical examination (general) (routine) without abnormal findings (Primary Dx); Encounter for screening mammogram for breast cancer; Encounter for surveillance of contraceptive pills Start: 10-07-2024 End: 10-07-2024 Patient encounter status Kayla Cadet APRN.ACCOUNT SPECIALIST Work Phone: [facility] Start: 10-07-2024 End: 10-07-2024 ambulatory KAYLA CADET Facility:[facility] Start: 10-07-2024 End: 10-07-2024 Subsequent [facility] visit [facility] Start: 09-12-2024 End: 09-12-2024 ambulatory Kb Silver Facility:[facility] Start: 08-12-2024 End: 08-12-2024 [facility] Start: 10-02-2023 End: 10-02-2023 Patient encounter procedure Kayla Cadet APRN.CNP Work Phone: OB/Gynecology Comment on above: Encounter for gyneco logical examination (general) (routine) without abnormal findings (Primary Dx); Screening for cervical cancer; Encounter for screening for human papillomavirus (HPV); Encounter for screening mammogram for breast cancer; Encounter for surveillance of contraceptive pills Start: 10-02-2023 End: 10-02-2023 Patient encounter status Kayla Cadet APRN.ACCOUNT SPECIALIST Work Phone: [facility] Work Phone: Start: 11-09-2022 End: 11-09-2022 Patient encounter procedure Karen PEGUERO Work Phone: [facility] Comment on above: Acute non-recurrent sinusitis, unspecified location (Primary Dx) Start: 03-10-2022 End: 03-10-2022 Patient encounter procedure Kayla Cadet APRN.ELINA Work Phone: OB/Gynecology Comment on above: Encounter for gyneco logical examination (general) (routine) without abnormal findings (Primary Dx); Encounter for screening mammogram for breast cancer; Encounter for surveillance of contraceptive pills Start: 03-10-2022 End: 03-10-2022 Patient encounter status Kayla Cadet APRN.ELINA Work Phone: OB/Gynecology Start: 11-19-2021 Documentation procedure Mammog hayes Coordinator [facility] Start: 11-19-2021 Letter encounter Mammography Coordinator [facility] Department Start: 11-19-2021 End: 11-19-2021 Subsequent hospital visit by physician [facility] Comment on above: Encounter for screen ing mammogram for breast cancer [Z12.31] Start: 04-11-2011 End: 06-24-2015 Patient encounter status Kayla Cadet APRN.ELINA Work Phone: [facility] Start: 04-08-2010 End: 06-24-2015 Assay of hemosiderin, quant Kayla Cadet APRN.CNP Work Phone: [facility] Work Phone: Procedures Date Procedure Procedure Detail Performing Clinician Start: 03-28-[address] Gt Silver MD Work Phone: Start: 11-19-2021 End: 11-19-2021 Screening mammography bi 2-view breast inc cad Kayla Cadet PASTRYCOOK'S ASSISTANTYadiraACCOUNT SPECIALIST Work Phone: Start: 02-04-2016 Adult depression screening assessment Screen Wstr Plan of Treatment Date Care Activity Detail Author Start: 09-09-2030 Urine microalbumin profile DTaP,Tdap,Td Vaccine (10 - Td or Tdap) [facility] Start: 10-02-2028 Screening for malign ant neoplasm of cervix Cervical Cancer Screening [facility] Start: 10-13-2025 End: 10-13-2025 Patient encounter procedure Mammogram Comment on above: Encounter for gyneco logical examination (general) (routine) without abnormal findings [Z01.419]; Encounter for screening mammogram for breast cancer [Z12.31] Annual Start: 10-07-2025 Screening for malign ant neoplasm of breast Mammogram Screening [facility] Start: 03-28-2025 Patient discharge [facility] Start: 04-21-2024 Covid-19 Vaccine ( season) Covid-19 Vaccine () [facility] Start: 04-21-2024 Influenza vaccination Influenza Vacc ine (#1) [facility] Start: 08-21-2023 Depression Assessment Depression Ass essment [facility] Start: 04-21-2023 Influenza vaccination Influenza Vacc ine (#1) [facility] Start: 01-18-2023 HPV TESTING HPV TESTING [facility] Start: 01-18-2023 PAP TESTING PAP TESTING [facility] Start: 01-18-2023 Screening for malign ant neoplasm of cervix [facility] Start: 11-19-2022 Mammography MAMMOGRAM [facility] Start: 11-19-2022 Screening for malign ant neoplasm of breast Mammogram Screening [facility] Start: 08-21-2022 DEPRESSION ASSESSMENT DEPRESSION ASS ESSMENT [facility] Start: 04-21-2022 Influenza vaccination C [facility] Start: 04-12-2020 Urine microalbumin profile DTAP,TDAP,TD (7 - Td or Tdap) [facility] Start: 02-03-2017 Adult depression screening assessment DEPRESSION SCREENING [facility] Start: 1998 Anxiety Screening Anxiety Screening [facility] Start: 1998 Depression Screening Depression Scre ening [facility] Start: 1998 HEPATITIS C SCREENING HEPATITIS C [facility] Start: 1998 Hepatitis C screening Hepatitis C [facility] Start: 1998 HIV SCREENING HIV SCREENING [facility] Start: 1998 HIV screening HIV Screening [facility] Start: 1985 COVID-19 VACCINE (1) COVID-19 VACCIN E (1) [facility] Start: 03-31-1981 COVID-19 VACCINE (#1) COVID-19 VACCI NE (#1) [facility] End: 11-06-2025 DBT Breast - bilateral screening BONY SCREENING W [facility]MAIR Radiology Routine Encounter for gynecological examination (general) (routine) without abnormal findings Encounter for screening mammogram for breast cancer 1 Occurrences starting 10/07/2024 until 11/06/2025 [facility] Work Phone: Comment on above: 1 Occurrences starti ng 10/07/2024 until 11/06/2025 End: 10-07-2024 DBT Breast - bilateral screening [facility] Work Phone: Comment on above: ONCE for 1 Occurrenc es starting 10/07/2024 until 10/07/2024 End: 10-31-2024 MG Breast Screening BONY SCREENING Radiology Routine Encounter for screening mammogram for breast cancer 1 Occurrences starting 10/02/2023 until 10/31/2024 [facility] Work Phone: Comment on above: 1 Occurrences starti ng 10/02/2023 until 10/31/2024 PAP TEST PAP TEST Lab [facility] Screening for cervical cancer Encounter for screening for human papillomavirus (HPV) 10/02/2023 2:27 PM EST [facility] Work Phone: End: 04-09-2023 Screening mammography bi 2-view breast inc cad BONY SCREENING Radiology Routine Encounter for screening mammogram for breast cancer 1 Occurrences starting 03/10/2022 until 04/09/2023 [facility] Work Phone: Comment on above: 1 Occurrences starti ng 03/10/2022 until 04/09/2023 [facility] Immunizations Immunization Date Immunization Notes Care Provider Rosa leslylinda 04-01-2020 tetanus toxoid, reduced diphtheria toxoid, and acellular pertussis vaccine, adsorbed Dr. Kb Silver MD Work Phone: [facility] 02-25-2016 measles, mumps and rubella virus vaccine Screen [facility] Work Phone: 04-12-2010 tetanus toxoid, reduced diphtheria toxoid, and acellular pertussis vaccine, adsorbed Screen [facility] 01-11-1999 hepatitis B vaccine, pediatric or pediatric/adolescent dosage Screen [facility] 09-01-1998 hepatitis B vaccine, pediatric or pediatric/adolescent dosage Screen [facility] 07-06-1998 hepatitis B vaccine, pediatric or pediatric/adolescent dosage Screen [facility] 03-04-1993 measles, mumps and rubella virus vaccine Screen [facility] 12-20-1985 diphtheria and tetan us toxoids, adsorbed for pediatric use Screen [facility] 12-02-1982 diphtheria, tetanus toxoids and pertussis vaccine Screen [facility] 12-02-1982 trivalent poliovirus vaccine, live, oral Screen [facility] 02-23-1982 measles, mumps and rubella virus vaccine Screen [facility] 06-09-1981 diphtheria, tetanus toxoids and pertussis vaccine Screen [facility] 04-02-1981 diphtheria, tetanus toxoids and pertussis vaccine Screen [facility] 04-02-1981 trivalent poliovirus vaccine, live, oral Screen [facility] 01-09-1981 diphtheria, tetanus toxoids and pertussis vaccine Screen [facility] 01-09-1981 trivalent poliovirus vaccine, live, oral Screen [facility] 1980 trivalent poliovirus vaccine, live, oral Screen [facility] Payers Date Payer Category Payer Self-pay 2023 [employer] BLUE CARD PPO OOS [id number] 2023 Unknown [id number] 2021 Unknown [employer] BLUE CARD PPO OOS [id number] 2021-Present [phone] [place], [place] [id number] PPO [id number] 2021 Unknown [id number] 2020 Unknown [employer] BLUE ACCE SS PPO [id number] 2020-Present [phone] [id number] [place] [id number] PPO [id number] Unknown [id number] Unknown [facility] [id number] Unknown [id number] Unknown [id number] Unknown [id number] Unknown [id number] Unknown [id number] Social History Date Type Detail Facility Start: 01-23-2025 End: 03-25-2025 Tobacco smoking status NHIS Never smoked tobacco [facility] Work Phone: Start: 02-02-2021 End: 10-07-2024 Alcohol intake Current drinker of alcohol (finding) [facility] Start: 1980 Sex Assigned At Female C [facility] Start: 11-09-2021 End: 03-10-2022 Exposure to SARS-CoV-2 (event) Not sure [facility] Start: 10-02-2023 End: 10-07-2024 History of Social function [facility] Start: 10-02-2023 End: 10-07-2024 Tobacco use panel [facility] National Score (1-10 0), lower number is lower risk Not on file [facility] Start: 11-18-2021 Gender identity Identifies as female gender (finding) [facility] Start: 11-18-2021 Sexual orientation Heterosexual (fin nathaniel) [facility] Goals Date Patient Goal Desired Activity /State Functional Status Date Assessment Result Facility 02-05-2015 Are you deaf, or do you have serious difficulty hearing No 02/05/2015 10:09 AM Linda Duron LPN No [facility] 02-05-2015 Are you blind, or do you have serious difficulty seeing, even when wearing glasses No 02/05/2015 10:09 AM Linda Duron LPN No [facility] 02-05-2015 Do you have serious difficulty walking or climbing stairs No 02/05/2015 10:09 AM Linda Duron LPN No [facility] 02-05-2015 Do you have difficul ty dressing or bathing No 02/05/2015 10:09 AM Linda Duron LPN No [facility] 02-05-2015 Because of a physica l, mental, or emotional condition, do you have difficulty doing errands alone such as visiting a physician's office or shopping No 02/05/2015 10:09 AM Linda Duron LPN No [facility] Mental Status Date Assessment Result Facility 03-28-2025 Cognitive function Voice/Name [facility] Work Phone: 02-05-2015 Because of a physica l, mental, or emotional condition, do you have serious difficulty concentrating, remembering, or making decisions No 02/05/2015 10:09 AM Linda Duron LPN No [facility] Clinical Notes 04-11-2011 to 03-28-2025 Note Date & Type Note Facility 03-28-2025 Procedure note [facility] 03-28-2025 Procedure note [facility] 03-28-2025 Consult note [facility] 03-28-2025 Consult note [facility] 03-28-2025 History and physi sandra note [facility] 03-28-2025 Note [facility] Medical Records Department [address] [place] [address] History Physical Exam 03/28/25 1222 MR#: [id number] Acct: [id number] Name: LAURY JIMENEZ Rep #: [id number] : 1980 44 From: Bowen Rodgers DO PCP: Dr. Kb Silver MD Status:[facility] Location: [place] [address] HPI - General General Date of Admission: 03/28/25 Date of Service: 03/28/25 Chief Complaint: Dysphagia HPI Narrative LAURY JIMENEZ, is a 44 F who presentsChief Complaint: food gets stuck in my throat Laura - >1 year stomach pain, reports she was taking her husbands Omeprazole 40mg daily, this did not help, epigastric and LUQ, burning/aching/stabbing, no change with PO intake - reports pain was constant, but since August she is only having pain a few days a month - Carafate 1g tablets QID, 10d course and this did help - Protonix 40mg QD - reports a long history of upper esophageal dysphagia - reports a Esophagram August 2024 was negative + nausea - emesis - denies any weight loss - little caffeine intake - denies smoking - denies any marijuana use - limited alcohol use - no change in bowel habits [facility] Medical History Wears contact lenses Anxiety Chronic cough Non-smoker Gastric reflux Chronic sinusitis Plantar fasciitis Burn of left hand Home Medications ???Medication ???Instructions ???Recorded ???Last Taken ???Type fexofenadine 60 mg tablet (Tana 60 mg PO BID 01/22/25 03/27/25 H istory Allergy) fluticasone propionate 50 1 spray intranasal QDAY 01/22/25 0 03/27/25 History mcg/actuation nasal spray,suspension hydroxyzine pamoate 25 mg capsule 25 mg PO TID PRN anxiety 01/22/25 Unknown History (Vistaril) multivitamin 1 tab PO QDAY 01/22/25 03/27/25 Hi story desogestrel 0.15 mg-ethinyl 1 tab PO QDAY 01/23/25 03/27/25 Hi story estradiol 0.03 mg tablet (Apri) pantoprazole 40 mg tablet,delayed 40 mg PO QDAY 01/23/25 03/27/25 H istory release (Protonix) sucralfate 1 gram tablet (Carafate) 1 g PO QACHS PRN epigastric curtis n 01/23/25 Unknown Rx #60 tabs Allergy/AdvReac Type Severity Reaction Status Date / Time influenza A (H1N1) virus Allergy Severe Anaphylaxis Verified 03/28/25 11:59 vaccine m-torres-split 2008 (From influenza A (H1N1)) adhesive tape Allergy Rash Verified 03/28/25 11:59 cefuroxime (From Ceftin) Allergy Rash Verified 03/28/25 11:59 Penicillins Allergy Rash Verified 03/28/25 11:59 codeine AdvReac Vomiting Verified 03/28/25 11:59 hydrocodone (From Vicodin) AdvReac Vomiting Verified 03/28/25 11:59 oxycodone (From Percocet) AdvReac PT UNSURE Verified 03/28/25 11:59 OF REACTION Family History Aunt Cancer Brother Hypertension Obesity Grandfather CAD (coronary artery disease) Hypertension Arthritis CVA (cerebral vascular accident) Alcoholism Kidney disease Grandmother Diabetes Cancer Arthritis Breast cancer Obesity Father Arthritis Diabetes Obesity Mother Hypertension Diabetes Arthritis Obesity Cancer Surgical History History of tonsillectomy H/O adenoidectomy H/O myringotomy H/O fasciotomy History of elbow surgery H/O knee surgery H/O tubal ligation Social History Smoking Status: Never smoker alcohol intake: current alcohol intake frequency: holidays/special occasions only substance use type: does not use what type of physical activity do you participate in: walking ROS Constitutional Constitutional: Denies fatigue, fever(s), poor appetite, weight gain or weight loss Gastrointestinal Gastrointestinal: Denies belching, bloating, change in bowel habits, change in stool character, chewing difficulty, coffee ground emesis, constipation, cramping, diarrhea, dyspepsia, dysphagia, early satiety, excessive flatus, fecal incontinence, heartburn, hematemesis, hematochezia, hemorrhoids, loose stools, melena, nausea, odynophagia, rectal bleeding, tenesmus, vomiting or weight changes Vital Signs Vital Signs Vital Signs: 03/28/25 12:01 03/28/25 12:01 Temperature 97.3 F L Temperature Source Temporal Pulse Rate 77 Respiratory Rate 18 Respiratory Pattern Normal Blood Pressure 127/90 H Blood Pressure Mean 102 Blood Pressure Source Monitor Blood Pressure Position Semi-Fowlers Blood Pressure Location Right Arm Pulse Ox 98 Oxygen Delivery Method Room Air Weight Weight: 189 lb 9.561 oz Body Mass Index (BMI) 31.5 Physical Exam Const alert, oriented x3, no apparent distress and healthy appearing General Appearance: cooperativ (more content not included)... [facility] 01-23-2025 Evaluation note Diagnosis Onset Date Resolution Dysphagia acute January 23, 2025 8:37am Epigastric pain acute January 23, 2025 8:37am Nausea acute January 23, 2025 8:37am Dysphagia acute March 28 11:44am Epigastric pain acute March 82024 11:44am Nausea acute March 28 11:44am [facility] Work Phone: 1(381) 718-967102-17-2025 NoteHNO ID: [id number] Author: KAYLA CADET APRN.ACCOUNT SPECIALIST Service: ? Author Type: Nurse Practitioner Type: Progress Notes Filed: 10/07/2024 14:34 Note Text: Patient declined bill adjuster. Laura is a 44 year old who presents for an annual gynecologic exam without complaints. Isaiah had 3 wks of spotting nothing since Menses: no menses - continuous OCPs. Contraception: tubal sterilization HPV vaccine: No Last Pap: 09/2023 normal HPV: 09/2023 negative History of abnormal pap: Yes Last mammogram: 2024 pending Sexually active: Yes Pain with intercourse: No Postcoital bleeding: No OB History Gravida3 Para2 Term2 Preterm0 AB1 Living2 SAB1 IAB0 Ectopic0 Multiple0 Live Births0 Comment: Menarche 11, lmp 12/18/2010 Facilities Painter History LMP: 01/10/2021, Drug Induced Amenorrhea Age at Menarche: 11 Age at First : Age at Menopause: Facilities Painter History Comments: Sexual Activity: Yes; Male Contraception: Tubal Ligation PAST MEDICAL HISTORY Diagnosis Date Abnormal Pap smear 10/2008 follows with [facility] Women's health Cervical high risk human papillomavirus (HPV) DNA test positive Mild dysplasia of cervix (EMILEE I) colposcopy with bx Nipple discharge in female 09/2010 green PAST SURGICAL HISTORY Procedure Laterality Date ARTHROSCOPY KNEE SURGICAL W/LAT RELEASE 08/21/2008 left knee -Dr. Vásquez COLPO OF CERVIX INC UPPER VAG PAST SURGICAL HISTORY OF 04/21/2011 Left foot Plantar PAST SURGICAL HISTORY OF Left 08/2019 left elbow tendon repair TONSILLECTOMY AND ADENOIDECTOMY TUBAL LIGATION, 08/21/2007 TYMPANOSTOMY LOCAL/TOPICAL ANESTHESIA x 3 FAMILY HISTORY Problem Relation Age of Onset Allergies Mother Cancer Mother endometrial -- 58 Diabetes Mother Lipids Father Diabetes Father prediabetes Cancer Maternal Grandmother brain and lung Diabetes Maternal Grandmother Breast Cancer Paternal Grandmother Heart Paternal Grandfather arrythmia Cancer Maternal Aunt thyroid SOCIAL HISTORY Social History Tobacco Use Smoking status: Never Smokeless tobacco: Never Vaping Use Vaping status: Never Used Substance Use Topics Alcohol use: Yes Comment: Occassionally Drug use: No REVIEW OF SYSTEMS Abdomen: No abdominal pain, nausea, vomiting, diarrhea, or constipation. No bloating, early satiety, indigestion, or increased flatulence. Bladder: No dysuria, gross hematuria, urinary frequency, urinary urgency, or incontinence. Breast: No breast lumps, nipple d/c, overlying skin changes, redness or skin retraction. Allergies and current medication updated:Yes SENSITIVE EXAM: The sensitive examination was discussed with the Patient or Patient's Authorized Security Project Manager. As applicable, any other physician, advance practice provider, medical student, or other health professional student that will be observing or involved in the sensitive examination for educational or training purposes was discussed with the Patient or Authorized Security Project Manager. The Patient or Authorized Security Project Manager has agreed to proceed with the sensitive examination. (Sensitive examination includes inspection and/or palpation of the breasts, pelvis, prostate and anorectal regions). EXAM: BP 124/76 Ht 5' 5 (1.65m) Wt 195 lb 3.2 oz (88.5kg) LMP 01/10/2021 BMI 32.48 kg/(m2). GENERAL: pleasant, female in no apparent distress HEENT: Normocephalic, atraumatic, mucus membranes moist, and no lesions DERMATOLOGY: Normal, without lesions, non-icteric, and non-hirsute BREAST: soft, non-tender, symmetric, no dominant mass, normal nipple-areolar complex, no lymphadenopathy, and no nipple discharge CHEST: Normal inspiratory effort ABDOMEN: soft, non-tender, and no masses PELVIC: external genitalia normal, normal Bartholin's glands, urethra, [place]'s glands, no vulvar lesions, no cervical lesions, physiologic discharge present, normal appearing perineal body and perianal region BIMANUAL: uterus normal size, shape and consistency, no adnexal masses, and non-tender RECTOVAGINAL: deferred. NEURO: alert and oriented x3,exam grossly non-focal EXTREMITIES: normal ASSESSMENT/PLAN: 1) Health maintenance: Pap/HPV up to date. Mammogram up to date . Nutrition, exercise and routine health maintenance exams reviewed. Calcium/Vitamin D supplementation information provided. Colon cancer screening: start at age 45 2) Contraception: tubal sterilization. Contraceptive options reviewed and information provided. 3) STD screening: Declined STD check. 4) Follow up one year or sooner as needed Kayla Cadet APRN.[facility]02-17-2025 History of Present illness Narrative* Kayla Cadet APRN.ELINA - 10/07/2024 12:56 PM EST Patient declined bill adjuster. Laura is a 44 year old who presents for an annual gynecologic exam without complaints. Isaiah had 3 wks of spotting nothing since Menses: no menses - continuous OCPs. Contraception: tubal sterilization HPV vaccine: No Last Pap: 09/2023 normal HPV: 09/2023 negative History of abnormal pap: Yes Last mammogram: 2024 pending Sexually active: Yes Pain with intercourse: No Postcoital bleeding: No OB History Gravida3 Para2 Term2 Preterm0 AB1 Living2 SAB1 IAB0 Ectopic0 Multiple0 Live Births0 Comment: Menarche 11, lmp 12/18/2010 Facilities Painter History LMP: 01/10/2021, Drug Induced Amenorrhea Age at Menarche: 11 Age at First : Age at Menopause: Facilities Painter History Comments: Sexual Activity: Yes; Male Contraception: Tubal Ligation PAST MEDICAL HISTORY Diagnosis Date Abnormal Pap smear 10/2008 [facility] Cervical high risk human papillomavirus (HPV) DNA test positive Mild dysplasia of cervix (EMILEE I) colposcopy with bx Nipple discharge in female 09/2010 green PAST SURGICAL HISTORY Procedure Laterality Date ARTHROSCOPY KNEE SURGICAL W/LAT RELEASE 08/21/2008 left knee -Dr. Fahad SUBRAMANIAN OF CERVIX INC UPPER VAG PAST SURGICAL HISTORY OF 04/21/2011 Left foot Plantar PAST SURGICAL HISTORY OF Left 08/2019 left elbow tendon repair TONSILLECTOMY & ADENOIDECTOMY <AGE 12 TUBAL LIGATION, 08/21/2007 TYMPANOSTOMY LOCAL/TOPICAL ANESTHESIA x 3 FAMILY HISTORY Problem Relation Age of Onset Allergies Mother Cancer Mother endometrial -- 58 Diabetes Mother Lipids Father Diabetes Father prediabetes Cancer Maternal Grandmother brain and lung Diabetes Maternal Grandmother Breast Cancer Paternal Grandmother Heart Paternal Grandfather arrythmia Cancer Maternal Aunt thyroid SOCIAL HISTORY Social History Tobacco Use Smoking status: Never Smokeless tobacco: Never Vaping Use Vaping status: Never Used Substance Use Topics Alcohol use: Yes Comment: Occassionally Drug use: No REVIEW OF SYSTEMS Abdomen: No abdominal pain, nausea, vomiting, diarrhea, or constipation. No bloating, early satiety, indigestion, or increased flatulence. Bladder: No dysuria, gross hematuria, urinary frequency, urinary urgency, or incontinence. Breast: No breast lumps, nipple d/c, overlying skin changes, redness or skin retraction. Allergies and current medication updated:Yes SENSITIVE EXAM: The sensitive examination was discussed with the Patient or Patient's Authorized Security Project Manager. As applicable, any other physician, advance practice provider, medical student, or other health professional student that will be observing or involved in the sensitive examination for educational or training purposes was discussed with the Patient or Authorized Security Project Manager. The Patient or Authorized Security Project Manager has agreed to proceed with the sensitive examination. (Sensitive examination includes inspection and/or palpation of the breasts, pelvis, prostate and anorectal regions). EXAM: BP 124/76 Ht 5' 5 (1.65m) Wt 195 lb 3.2 oz (88.5kg) LMP 01/10/2021 BMI 32.48 kg/(m^2). GENERAL: pleasant, female in no apparent distress HEENT: Normocephalic, atraumatic, mucus membranes moist, and no lesions DERMATOLOGY: Normal, without lesions, non-icteric, and non-hirsute BREAST: soft, non-tender, symmetric, no dominant mass, normal nipple-areolar complex, no lymphadenopathy, and no nipple discharge CHEST: Normal inspiratory effort ABDOMEN: soft, non-tender, and no masses PELVIC: external genitalia normal, normal Bartholin's glands, urethra, [place]'s glands, no vulvar lesions, no cervical lesions, physiologic discharge present, normal appearing perineal body and perianal region BIMANUAL: uterus normal size, shape and consistency, no adnexal masses, and non-tender RECTOVAGINAL: deferred. NEURO: alert and oriented x3,exam grossly non-focal EXTREMITIES: normal ASSESSMENT/PLAN: 1) Health maintenance: Pap/HPV up to date. Mammogram up to date . Nutrition, exercise and routine health maintenance exams reviewed. Calcium/Vitamin D supplementation information provided. Colon cancer screening: start at age 45 2) Contraception: tubal sterilization. Contraceptive options reviewed and information provided. 3) STD screening: Declined STD check. 4) Follow up one year or sooner as needed Kayla Cadet APRN.ELINA documented in this encounterOhiohealth [facility]02-17-2025 History of Present illness Narrative* Lloyd Hawkins Mammo Tech - 10/07/2024 12:30 PM EST Radiology Service Progress Note PATIENT NAME: Laury Jimenez DATE OF SERVICE: October 07, 2024 TIME: 12:57 PM PATIENT IDENTITY VERIFICATION COMPLETED USING TWO (2) IDENTIFIERS: Name and Date of confirmedby patient verbally. FALL SCREENING: Has the patient had 2 falls in the last year or 1 fall with injury or currently using an Ambulatory Assistive Device (Walker, Cane, Wheelchair, Crutches, etc.)? No PATIENT GENDER DATA: Assigned female at . status: : No status:NO. PATIENT RELEVANT IMPLANT DATA REVIEWED: Not Applicable PATIENT PRESENTS WITH AN IMPLANTABLE OR ATTACHED FORMING TUBE SELECTOR: No RADIOLOGY DEPARTMENT: Mammography PERIPHERAL IV DATA: Not applicable SIGNED BY: Maldonado Dolan October 07, 2024 12:57 PM documented in this encounterOhiohealth Shelby Hospital02-17-2025 NoteHNO ID: [id number] Author: LLOYD HAWKINS Mammo Tech Service: ? Author Type: Technologist Type: Progress Notes Filed: 10/07/2024 12:57 Note Text: Radiology Service Progress Note PATIENT NAME: Laury Jimenez DATE OF SERVICE: October 07, 2024 TIME: 12:57 PM PATIENT IDENTITY VERIFICATION COMPLETED USING TWO (2) IDENTIFIERS: Name and Date of confirmed by patient verbally. FALL SCREENING: Has the patient had 2 falls in the last year or 1 fall with injury or currently using an Ambulatory Assistive Device (Walker, Cane, Wheelchair, Crutches, etc.)? No PATIENT GENDER DATA: Assigned female at . status: : No status: NO. PATIENT RELEVANT IMPLANT DATA REVIEWED: Not Applicable PATIENT PRESENTS WITH AN IMPLANTABLE OR ATTACHED FORMING TUBE SELECTOR: No RADIOLOGY DEPARTMENT: Mammography PERIPHERAL IV DATA: Not applicable SIGNED BY: Maldonado Dolan October 07, 2024 12:57 [facility]02-12-2024 History of Present illness Narrative* Kayla Cadet APRN.ACCOUNT SPECIALIST - 10/02/2023 1:17 PM EST Barrel Roller offered: Patient declinesYadira Sanchez is a 43 year old who presents for an annual gynecologic exam without complaints. Menses: no menses - continuous OCPs. Contraception: tubal sterilization HPV vaccine: No Last Pap: 01/22/2018 normal HPV: 01/22/2018 negative History of abnormal pap: Yes Last mammogram: 2021normal Sexually active: Yes Pain with intercourse: No Postcoital bleeding: No OB History T2 L2 SAB1 IAB0 Ectopic0 Multiple0 Live Births0 Comment: Menarche 11, lmp 12/18/2010 Facilities Painter History LMP: 01/10/2021, Drug Induced Amenorrhea Age at Menarche: Age at First : Age at Menopause: Facilities Painter History Comments: Sexual Activity: Yes; Male Contraception: Tubal Ligation PAST MEDICAL HISTORY Diagnosis Date Abnormal Pap smear 10/2008 follows with [facility] Cervical high risk human papillomavirus (HPV) DNA test positive Mild dysplasia of cervix (EMILEE I) colposcopy with bx Nipple discharge in female 09/2010 green PAST SURGICAL HISTORY Procedure Laterality Date ARTHROSCOPY KNEE SURGICAL W/LAT RELEASE 08/21/2008 left knee -Dr. Fahad SUBRAMANIAN OF CERVIX INC UPPER VAG PAST SURGICAL HISTORY OF 04/21/2011 Left foot Plantar PAST SURGICAL HISTORY OF Left 08/2019 left elbow tendon repair TONSILLECTOMY & ADENOIDECTOMY <AGE 12 TUBAL LIGATION, 08/21/2007 TYMPANOSTOMY LOCAL/TOPICAL ANESTHESIA x 3 FAMILY HISTORY Problem Relation Age of Onset Allergies Mother Cancer Mother endometrial -- 58 Diabetes Mother Lipids Father Diabetes Father prediabetes Cancer Maternal Grandmother brain and lung Diabetes Maternal Grandmother Breast Cancer Paternal Grandmother Heart Paternal Grandfather arrythmia Cancer Maternal Aunt thyroid SOCIAL HISTORY Social History Tobacco Use Smoking status: Never Smokeless tobacco: Never Vaping Use Vaping Use: Never used Substance Use Topics Alcohol use: Yes Comment: Occassionally Drug use: No REVIEW OF SYSTEMS Abdomen: No abdominal pain, nausea, vomiting, diarrhea, or constipation. No bloating, early satiety, indigestion, or increased flatulence. Bladder: No dysuria, gross hematuria, urinary frequency, urinary urgency, or incontinence. Breast: No breast lumps, nipple d/c, overlying skin changes, redness or skin retraction. Allergies and current medication updated:Yes EXAM: LMP 01/10/2021 GENERAL: pleasant, female in no apparent distress HEENT: Normocephalic, atraumatic, mucus membranes moist, and no lesions NECK: Supple, full range of motion, no adenopathy, and thyroid normal DERMATOLOGY: Normal, without lesions, non-icteric, and non-hirsute BREAST: soft, non-tender, symmetric, no dominant mass, normal nipple-areolar complex, no lymphadenopathy, and no nipple discharge CHEST: Normal inspiratory effort ABDOMEN: soft, non-tender, and no masses PELVIC: external genitalia normal, normal Bartholin's glands, urethra, [place]'s glands, no vulvar lesions, no cervical lesions, physiologic discharge present, normal appearing perineal body and perianal region BIMANUAL: uterus normal size, shape and consistency, no adnexal masses, and non-tender RECTOVAGINAL: deferred. NEURO: alert and oriented x3,exam grossly non-focal EXTREMITIES: normal ASSESSMENT/PLAN: 1) Health maintenance: Pap done with HPV. Mammogram ordered. Nutrition, exercise and routine health maintenance exams reviewed. Calcium/Vitamin D supplementation information provided. 2) Contraception: combined hormonal contraceptives and tubal sterilization. Contraceptive options reviewed and information provided. 3) STD screening: Declined STD check. 4) Follow up one year or sooner as needed Kayla Cadet APRN.ACCOUNT SPECIALIST documented in this encounterOhiohealth Shelby Hospital03-22-2023 History of Present illness Narrative* MAREILENA Moreno - 11/09/2022 3:44 PM EDT This note was created using [email or web address]. Subjective Laury Jimenez is a 42 year old female. HPI 42-year-old female presents for sinus congestion, runny nose, drainage for 3 to 4 weeks. She states that she started getting a runny nose about 3 to 4 weeks ago. She has a sinus pressure and pain. She states about 3 to 4 days ago started getting a cough. She now has some green mucus draining from her nose. Denies any fevers or chills. No chest pain or shortness of breath. No sick contacts. PAST MEDICAL HISTORY Diagnosis Date Abnormal Pap smear 10/2008 follows with [facility] Cervical high risk human papillomavirus (HPV) DNA test positive Mild dysplasia of cervix (EMILEE I) colposcopy with bx Nipple discharge in female 09/2010 green PAST SURGICAL HISTORY Procedure Laterality Date ARTHROSCOPY KNEE SURGICAL W/LAT RELEASE 08/21/2008 left knee -Dr. Fahad SUBRAMANIAN OF CERVIX INC UPPER VAG PAST SURGICAL HISTORY OF 04/21/2011 Left foot Plantar PAST SURGICAL HISTORY OF Left 08/2019 left elbow tendon repair TONSILLECTOMY & ADENOIDECTOMY <AGE 12 TUBAL LIGATION, 08/21/2007 TYMPANOSTOMY LOCAL/TOPICAL ANESTHESIA x 3 ALLERGIES Adhesive Tape (Rosins), Ceftin [Cefuroxime Axetil], Codeine, Penicillins, Percocet [Oxycodone-Acetaminophen], and Vicodin [Hydrocodone-Acetaminophen] MEDICATIONS fexofenadine HCl (TANA ORAL) Take by mouth. Desogestrel-Ethinyl Estradiol (APRI) 0.15-0.03 mg per tablet Take 1 tablet by mouth once daily. Take active pills only. Start a new pack every 3 weeks. hydroxyzine pamoate (VISTARIL ORAL) Take by mouth. fluticasone propionate (FLONASE NASAL) Use in the nose. albuterol HFA (PROAIR HFA) 90 mcg/actuation inhaler Inhale 2 Puffs as instructed every 4 hours as needed. Dennis Port-3 Fatty Acids-Vitamin E 1,000 mg cap Take 1 capsule by mouth twice daily. doxycycline monohydrate 100 mg tablet Take 1 tablet by mouth twice daily for 5 days. MOMETASONE FUROATE (NASONEX NASAL) Use in the nose. multivitamin tablet Take 1 tablet by mouth once daily. (Patient not taking: Reported on 11/09/2022) FAMILY HISTORY Problem Relation Age of Onset Allergies Mother Cancer Mother endometrial -- 58 Diabetes Mother Lipids Father Diabetes Father prediabetes Cancer Maternal Grandmother brain and lung Diabetes Maternal Grandmother Breast Cancer Paternal Grandmother Heart Paternal Grandfather arrythmia Cancer Maternal Aunt thyroid Social History Tobacco Use Smoking status: Never Smokeless tobacco: Never Vaping Use Vaping Use: Never used Substance Use Topics Alcohol use: Yes Comment: Occassionally Drug use: No Review of Systems Constitutional: Negative for chills and fever. HENT: Positive for congestion, sinus pressure and sinus pain. Negative for ear pain and sore throat. Respiratory: Positive for cough. Negative for shortness of breath. Cardiovascular: Negative for chest pain. Gastrointestinal: Negative for diarrhea and vomiting. Objective BP 110/74 Pulse 60 Temp 37 C (98.6 F) (Tympanic) Resp 16 Wt 88.6 kg (195 lb 6.4 oz) LMP 01/10/2021 SpO2 98% BMI 33.54 kg/m Physical Exam Vitals and nursing note reviewed. Constitutional: General: She is not in acute distress. Appearance: Normal appearance. She is not toxic-appearing. HENT: Right Ear: Tympanic membrane and ear canal normal. Left Ear: Tympanic membrane and ear canal normal. Nose: Congestion present. Right Sinus: Maxillary sinus tenderness present. Left Sinus: Maxillary sinus tenderness present. Mouth/Throat: Mouth: Mucous membranes are moist. Pharynx: No oropharyngeal exudate or posterior oropharyngeal erythema. Eyes: Conjunctiva/sclera: Conjunctivae normal. Cardiovascular: Rate and Rhythm: Normal rate and regular rhythm. Pulmonary: Effort: Pulmonary effort is normal. Breath sounds: Normal breath sounds. Neurological: Mental Status: She is alert. Assessment and Plan ASSESSMENT/PLAN: 1. Acute non-recurrent sinusitis, unspecified location - ICD9: 461.9, ICD10: J01.90 - Will begin treatment with Doxycycline - The patient should also be given OTC decongestants prn for the first 5-7 days of treatment. - Supportive care with plenty of fluids, rest, and analgesia prn. -Declines COVID/flu swab Diagnosis and treatment plan were discussed and questions were answered to the patient's satisfaction. Pt acknowledged understanding of concepts and follow up plan. Specific signs and symptoms that would indicate the need for higher level of care were discussed in detail warranting prompt ER evaluation. MARIELENA Moreno documented in this encounterOhiohealth Shelby Hospital07-21-2022 History of Present illness Narrative* Kayla Cadet APRN.ACCOUNT SPECIALIST - 03/10/2022 2:26 PM EDT Laura is a 41 year old who presents for an annual gynecologic exam without complaints. Menses: no menses - continuous OCPs. Contraception: tubal sterilization HPV vaccine: No Last Pap: 01/22/2018 normal HPV: 01/22/2018 negative History of abnormal pap: Yes Last mammogram: 2021normal Sexually active: Yes Pain with intercourse: No Postcoital bleeding: No OB History T2 L2 SAB1 IAB0 Ectopic0 Multiple0 Live Births0 Comment: Menarche 11, lmp 12/18/2010 Facilities Painter History LMP: 01/10/2021, Drug Induced Amenorrhea Age at Menarche: Age at First : Age at Menopause: Facilities Painter History Comments: Sexual Activity: Yes; Male Contraception: Tubal Ligation PAST MEDICAL HISTORY Diagnosis Date Abnormal Pap smear 10/2008 follows with [facility] Cervical high risk human papillomavirus (HPV) DNA test positive Mild dysplasia of cervix (EMILEE I) colposcopy with bx Nipple discharge in female 09/2010 green PAST SURGICAL HISTORY Procedure Laterality Date ARTHROSCOPY KNEE SURGICAL W/LAT RELEASE 08/21/2008 left knee -Dr. Fahad SUBRAMANIAN OF CERVIX INC UPPER VAG PAST SURGICAL HISTORY OF 04/21/2011 Left foot Plantar PAST SURGICAL HISTORY OF Left 08/2019 left elbow tendon repair TONSILLECTOMY & ADENOIDECTOMY <AGE 12 TUBAL LIGATION, 08/21/2007 TYMPANOSTOMY LOCAL/TOPICAL ANESTHESIA x 3 FAMILY HISTORY Problem Relation Age of Onset Allergies Mother Cancer Mother endometrial -- 58 Diabetes Mother Lipids Father Diabetes Father prediabetes Cancer Maternal Grandmother brain and lung Diabetes Maternal Grandmother Breast Cancer Paternal Grandmother Heart Paternal Grandfather arrythmia Cancer Maternal Aunt thyroid SOCIAL HISTORY Social History Tobacco Use Smoking status: Never Smoker Smokeless tobacco: Never Used Vaping Use Vaping Use: Never used Substance Use Topics Alcohol use: Yes Comment: Occassionally Drug use: No REVIEW OF SYSTEMS Abdomen: No abdominal pain, nausea, vomiting, diarrhea, or constipation. No bloating, early satiety, indigestion, or increased flatulence. Bladder: No dysuria, gross hematuria, urinary frequency, urinary urgency, or incontinence. Breast: No breast lumps, nipple d/c, overlying skin changes, redness or skin retraction. Allergies and current medication updated:Yes EXAM: BP 100/68 Ht 5' 4 (1.63m) Wt 191 lb 9.6 oz (86.9kg) LMP 01/10/2021 BMI 32.87 kg/(m^2). GENERAL: pleasant, female in no apparent distress HEENT: Normocephalic, atraumatic, mucus membranes moist and no lesions NECK: Supple, full range of motion, no adenopathy and thyroid normal DERMATOLOGY: Normal, without lesions, non-icteric and non-hirsute BREAST: soft, non-tender, symmetric, no dominant mass, normal nipple-areolar complex, no lymphadenopathy and no nipple discharge CHEST: Normal inspiratory effort ABDOMEN: soft, non-tender and no masses PELVIC: external genitalia normal, normal Bartholin's glands, urethra, [place]'s glands, no vulvar lesions, no cervical lesions, physiologic discharge present, normal appearing perineal body and perianal region BIMANUAL: uterus normal size, shape and consistency, no adnexal masses and non-tender RECTOVAGINAL: deferred. NEURO: alert and oriented x3,exam grossly non-focal EXTREMITIES: normal ASSESSMENT/PLAN: 1) Health maintenance: Pap/HPV up to date. Mammogram up to date . Nutrition, exercise and routine health maintenance exams reviewed. Calcium/Vitamin D supplementation information provided. 2) Contraception: combined hormonal contraceptives. Contraceptive options reviewed and information provided. 3) STD screening: Declined STD check. 4) Follow up one year or sooner as needed Kayla Cadet APRN.ELINA documented in this encounterOhiohealth [facility] Hospital04-01-2022 Miscellaneous Notes* Letter - Mammography Coordinator - 11/19/2021 2:50 PM EDT November 19, 2021 PID: [id number] Laury Jimenez [address] [place] [address] Dear Ms. Jimenez, We are pleased to inform you that the results of your recent breast imaging exam on 11/19/2021 are normal. Your mammogram demonstrates that you have dense breast tissue, which could hide abnormalities. Dense breast tissue, in and of itself, is a relatively common condition. Therefore, this information is not provided to cause undue concern; rather, it is to raise your awareness and promote discussion with your health care provider regarding the presence of dense breast tissue in addition to other riskfactors. Early detection of cancer is very important. We also understand recommendations regarding breast cancer screening are controversial. Please discuss with your primary care provider which strategy is best for you and whether a mammogram is right for you. Your imaging studies and report will be [facility] at [facility] as part of your permanent medical record and are available for your continuing care. Thank you for allowing us to help in meeting your health care needs. Sincerely, Dr. Davenport Interpreting Radiologist [facility] (Normal over 40) documented in this encounterOhiohealth Shelby Hospital04-01-2022 History of Present illness Narrative* RT Griselda(R) - 11/19/2021 8:10 AM EDT Radiology Service Progress Note PATIENT NAME: Laury Jimenez DATE OF SERVICE: November 19, 2021 TIME: 8:15 AM PATIENT IDENTITY VERIFICATION COMPLETED USING TWO (2) IDENTIFIERS: Name and Date of confirmedby patient verbally. FALL SCREENING: Has the patient had 2 falls in the last year or 1 fall with injury or currently using an Ambulatory Assistive Device (Walker, Cane, Wheelchair, Crutches, etc.)? No PATIENT GENDER DATA: Female. status: : No status: NO. PATIENT RELEVANT IMPLANT DATA REVIEWED: Not Applicable RADIOLOGY DEPARTMENT: Mammography PERIPHERAL IV DATA: Not applicable SIGNED BY: RT Griselda(R) November 19, 2021 8:15 AM documented in this encounterOhiohealth Shelby Hospital08-22-2011 History of Past illness Narrative* Problem Noted Date Resolved Date Routine gynecological examination 04/11/2011 06/24/2015 Overview: Dr. Estrella Routine general medical examination at [facility] 04/08/2010 06/24/2015 Overview: 03/2010 -- annual physical with Linda Rajput CNP 04/11/2011, yearly check-up/pre-op clearance for podiatric surgery documented as of this encounter (statuses as of 11/20/2021) [facility] History of Past illness Narrative* Problem Noted Date Resolved Date Routine gynecological examination 04/11/2011 06/24/2015 Overview: Dr. Estrella Routine general medical examination at [facility] 04/08/2010 06/24/2015 Overview: 03/2010 -- annual physical with Linda Rajput CNP 04/11/2011, yearly check-up/pre-op clearance for podiatric surgery documented as of this encounter (statuses as of 11/23/2021) [facility] History of Past illness Narrative* Problem Noted Date Resolved Date Routine gynecological examination 04/11/2011 06/24/2015 Overview: Dr. Estrella Routine general medical examination at [facility] 04/08/2010 06/24/2015 Overview: 03/2010 -- annual physical with Linda Rajput CNP 04/11/2011, yearly check-up/pre-op clearance for podiatric surgery documented as of this encounter (statuses as of 03/10/2022) [facility] of Past illness Narrative* Problem Noted Date Resolved Date Routine gynecological examination 04/11/2011 06/24/2015 Overview: Dr. Estrella Routine general medical examination at [facility] 04/08/2010 06/24/2015 Overview: 03/2010 -- annual physical with Linda Rajput CNP 04/11/2011, yearly check-up/pre-op clearance for podiatric surgery documented as of this encounter (statuses as of 11/09/2022) [facility] History of Past illness Narrative* Problem Noted Date Diagnosed Date Resolved Date Routine gynecological examination 04/11/2011 06/24/2015 Overview: Dr. Estrella Routine general medical exam [facility] 04/08/2010 06/24/2015 Overview: 03/2010 -- annual physical with Linda Rajput CNP 04/11/2011, yearly check-up/pre-op clearance for podiatric surgery documented as of this encounter (statuses as of 10/02/2023) [facility] HospitalConsult note Author Jacinto Velazquez [facility] Note Date/Time March 28, 2025 12: 57pm [facility] Medical Records Department [address] [place] [address] Pre-Anesthesia Evaluation 03/28/25 1244 MR#: [id number] Acct: [id number] Name: LAURY JIMENEZ Rep #:[id number] : 1980 44 From: Jacinto Velazquez MD PCP: Dr. Kb Silver MD Status :REG [facility] [place] Race: C Location: [place] [address] ASA Classification* ASA Classification ASA Classification: 2 Assessment & Plan Anesthesia* Anesthesia Assessment Anesthesia Assessment: Discussed sedation and/or anesthesia options, risks, benefits, and alternatives with patient/parents/legal guardian/POA. Questions invited. The patient/parents/legal guardian/POA seems to understand and agrees to proceedwith anesthesia plan. Reviewed the physical assessment, medical history, allergy history and patient home medications list prior to surgery/procedure/anesthetic and documented any changes. Performed airway and anesthesia risk assessments. Anesthesia Type Anesthesia Type: MAC History Source History Obtained from:: Patient and Chart Anesthesia Focused Assessment* Temperature: 97.3 F Pulse Rate: 77 Blood Pressure: 127/90 Respiratory Rate: 18 Pulse Ox: 98 Oxygen Delivery Method: Room Air Airway Assessment Mouth opens: >3 cm Mallampati Score: IV Teeth Condition: Caps/Crowns (Patient has a couple crowns. 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 When Was Last Pacemaker Check QUESTION #4 FULL TEXT: You/Your Family Experience fever (hyperthermia) with Anesthesia Last Oral Intake Last Oral intake: Last Oral Intake NPO since 22:30 03/28/25 12:01 Meds taken in AM with sips of water? Meds patient instructed to take am of surgery PONV PONV - round corner cutter operator: PONV - round corner cutter operator Female Yes 03/25/25 10:13 HX of Motion Sickness Yes 03/25/25 10:13 HX of N/V After Surgery No 03/25/25 10:13 Non-Smoker Yes 03/25/25 10:13 Duration of Surgery greater No 03/25/25 10:13 than 60 minutes Number of Risk Factors 3 03/25/25 10:13 PONV Score Moderate Risk 03/25/25 10:13 Height & Weight Height & Weight: Anesthesia: Height & Weight Height 5 ft 5 in 03/28/25 12:01 Weight: 86 kg 03/28/25 12:01 Body Mass Index (BMI) 31.5 03/28/25 12:01 Respiratory Assessment Respiratory Assessment - round corner cutter operator: Respiratory Tract Infection Hx - round corner cutter operator Hx Respiratory Tract Infection No 03/25/25 10:13 STOP Sleep Apnea STOP Sleep Apnea - round corner cutter operator: STOP Sleep Apnea - round corner cutter operator Hx Hypertension No 03/25/25 10:13 Hx Sleep Apnea No 03/25/25 10:13 CPAP BIPAP Do you snore loudly (louder No 03/25/25 10:13 than talking or can be heard Do you often feel tired/ No 03/25/25 10:13 fatigued/ sleepy during daytime? Has anyone observed you stop No 03/25/25 10:13 breathing during sleep? STOP Results Negative 03/25/25 10:13 QUESTION #5 FULL TEXT : Do you snore loudly (louder than talking or can be heard through closed doors)? 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 Specify any problems Hx of Preganancy in last 3 No 03/25/25 10:13 Months Nurse Filling Out Transfusion [id number] 03/25/25 10:13 & Questions: Date: 03/25/25 03/25/25 10:13 Time: 10:15 03/25/25 10:13 Patient unable to answer at this time (ie. confused, unrespo /Reproduction History /Reproductive History - round corner cutter operator: /Reproductive Hx- round corner cutter operator Hx Now No 03/25/25 10:13 Gestational Age (in weeks): EDC: Hx Hx Para Hx Section SAB No 03/25/25 10:13 Active Medications Active Medications: Current Medications Generic Name Dose Route Start Last Admin Trade Name Freq PRN Reason Stop Dose Admin Lactated Ringer's 1,000 mls @ 15 mls/hr 03/28/25 12:00 03/28/25 12:11 IV 15 mls/hr .Q48H QUEENIE Administration PFSH Medical History Wears contact lenses Anxiety Chronic cough Non-smoker Gastric reflux Chronic sinusitis Plantar fasciitis Burn of left hand Home Medications ?Medication ?Instructions ?Recorded ?Last Taken ?Type fexofenadine 60 mg tablet (Tana 60 mg PO BID 03/27/25 History Allergy) fluticasone propionate 50 1 spray intranasal QDAY 12/1303/27/25 History mcg/actuation nasal spray,suspension hydroxyzine pamoate 25 mg capsule 25 mg PO TID PRN anx iety 01/22/25 Unknown History (Vistaril) multivitamin 1 tab PO QDAY 01/22/2503/27 History desogestrel 0.15 mg-ethinyl 1 tab PO QDAY 01/23/2503/14 History estradiol 0.03 mg tablet (Apri) pantoprazole 40 mg tablet,delayed 40 mg PO QDAY 03/27/25 History release (Protonix) sucralfate 1 gram tablet (Carafate) 1 g PO QACHS PRN e pigastric pain 01/23/25 Unknown Rx #60 tabs Allergy/AdvReac Type Severity Reaction Status Date / Time influenza A (H1N1) virus Allergy Severe Anaphylaxis Verified 03/28/25 11:59 vaccine m-torres-split 2008 (From influenza A (H1N1)) adhesive tape Allergy Rash Verified 03/28/25 11:59 cefuroxime (From Ceftin) Allergy Rash Verified 03/28/25 11:59 Penicillins Allergy Rash Verified 03/28/25 11:59 codeine AdvReac Vomiting Verified 03/28/25 11:59 hydrocodone (From Vicodin) AdvReac Vomiting Verified 03/28/25 11:59 oxycodone (From Percocet) AdvReac PT UNSURE Verified 03/28/25 11:59 OF REACTION Family History Aunt Cancer Brother Hypertension Obesity Grandfather CAD (coronary artery disease) Hypertension Arthritis CVA (cerebral vascular accident) Alcoholism Kidney disease Grandmother Diabetes Cancer Arthritis Breast cancer Obesity Father Arthritis Diabetes Obesity Mother Hypertension Diabetes Arthritis Obesity Cancer Surgical History History of tonsillectomy H/O adenoidectomy H/O myringotomy H/O fasciotomy History of elbow surgery H/O knee surgery H/O tubal ligation Social History Smoking Status: Never smoker alcohol intake: current alcohol intake frequency: holidays/special occasions only substance use type: does not use what type of physical activity do you participate in: walking Review of Systems (Anesthesia) ROS Narrative System reviewed and no additional complaints, except as documented. 03/28/25 1257 <Electronically signed by Jacinto garcía MD> Date _ Jacinto Velazquez MD Cosigner Signature: Date CC: ~ Signed [facility] Work Phone: Consult note Author Liv Dodd [facility] Note Date/Time March 28, 2025 1:3 2pm [facility] Medical Records Department [address] [place] [address] [place] [address] Anesthesia Postop Eval I 03/28/251331 MR#: [id number] Acct: [id number] Name: LAURY JIMENEZ Rep #:[id number] : 1980 44 From: Liv Dodd CRNA PCP: Dr. Kb Silver MD Status :[facility] Y Race: C Location: [place] [address] Anesthesia: Postop Eval I Current Vital Signs Temperature: 96.9 F Pulse Rate: 63 Blood Pressure: 110/77 Respiratory Rate: 18 Pulse Ox: 95 Assessment Airway patent: Yes Spontaneous unlabored respirations: Yes nausea: No Vomiting: No Anesthesia Complication: No Fluid Hydration Crystalloid volume administer (ml): 200 Total IV fluid infused: 200 Progress Note Anesthesia document: Postop Eval 1 completed: Yes 03/28/251331 <Electronically signed by Liv jordan SETTLEMENT TECHNICIAN> Date _ Liv Dodd CRNA Cosigner Signature: Date CC: ~ Signed [facility] Work Phone: Evaluation note* Diagnosis Encounter for screening mammogram for breast cancer documented in this encounter [facility] note* Diagnosis Encounter for gynecological examination (general) (routine) without abnormal findings- Primary Encounter for screening mammogram for breast cancer Encounter for surveillance of contraceptive pills Surveillance of previously prescribed contraceptive pill documented in this encounter [facility] note* Diagnosis Acute non-recurrent sinusitis, unspecified location- Primary documented in this encounter [facility] note* Diagnosis Encounter for gynecological examination (general) (routine) without abnormal findings- Primary Screening for cervical cancer Screening for malignant neoplasm of the cervix Encounter for screening for human papillomavirus (HPV) Special screening examination for human papillomavirus (HPV) Encounter for screening mammogram for breast cancer Encounter for surveillance of contraceptive pills Surveillance of previously prescribed contraceptive pill documented in this encounter [facility] note* Diagnosis Encounter for gynecological examination (general) (routine) without abnormal findings- Primary Encounter for screening mammogram for breast cancer Encounter for surveillance of contraceptive pills Surveillance of previously prescribed contraceptive pill documented in this encounter [facility] note* Diagnosis Encounter for screening mammogram for breast cancer documented in this encounter [facility] noteNo assessment information availableDecatur [facility] Work Phone: History and physical note Author Bowen Rodgers [facility] Note Date/Time March 28, 2025 12: 24pm [facility] Medical Records Department [address] [place] [address] History & Physical Exam 03/28/25 1222 MR#: [id number] Acct: [id number] Name: LAURY JIMENEZ Rep #:[id number] : 1980 44 From: Bowen Rodgers DO PCP: Dr. Kb Silver MD Status :[facility] Location: [place] [id number] HPI - General General Date of Admission: 03/28/25 Date of Service: 03/28/25 Chief Complaint: Dysphagia HPI Narrative LAURY JIMENEZ, is a 44 F who presentsChief Complaint: food gets stuck in my throat Laura - >1 year stomach pain, reports she was taking her husbands Omeprazole 40mg daily, this did not help, epigastric and LUQ, burning/aching/stabbing, no changewith PO intake - reports pain was constant, but since August she is only having pain a few days a month - Carafate 1g tablets QID, 10d course and this did help - Protonix 40mg QD - reports a long history of upper esophageal dysphagia - reports a Esophagram August 2024 was negative + nausea - emesis - denies any weight loss - little caffeine intake - denies smoking - denies any marijuana use - limited alcohol use - no change in bowel habits PFSH Medical History Wears contact lenses Anxiety Chronic cough Non-smoker Gastric reflux Chronic sinusitis Plantar fasciitis Burn of left hand Home Medications ?Medication ?Instructions ?Recorded ?Last Taken ?Type fexofenadine 60 mg tablet (Taan 60 mg PO BID 03/27/25 History Allergy) fluticasone propionate 50 1 spray intranasal QDAY 12/1303/27/25 History mcg/actuation nasal spray,suspension hydroxyzine pamoate 25 mg capsule 25 mg PO TID PRN anx iety 01/22/25 Unknown History (Vistaril) multivitamin 1 tab PO QDAY 01/22/2503/27 History desogestrel 0.15 mg-ethinyl 1 tab PO QDAY 01/23/2503/14 History estradiol 0.03 mg tablet (Apri) pantoprazole 40 mg tablet,delayed 40 mg PO QDAY 03/27/25 History release (Protonix) sucralfate 1 gram tablet (Carafate) 1 g PO QACHS PRN e pigastric pain 01/23/25 Unknown Rx #60 tabs Allergy/AdvReac Type Severity Reaction Status Date / Time influenza A (H1N1) virus Allergy Severe Anaphylaxis Verified 03/28/25 11:59 vaccine m-torres-split 2008 (From influenza A (H1N1)) adhesive tape Allergy Rash Verified 03/28/25 11:59 cefuroxime (From Ceftin) Allergy Rash Verified 03/28/25 11:59 Penicillins Allergy Rash Verified 03/28/25 11:59 codeine AdvReac Vomiting Verified 03/28/25 11:59 hydrocodone (From Vicodin) AdvReac Vomiting Verified 03/28/25 11:59 oxycodone (From Percocet) AdvReac PT UNSURE Verified 03/28/25 11:59 OF REACTION Family History Aunt Cancer Brother Hypertension Obesity Grandfather CAD (coronary artery disease) Hypertension Arthritis CVA (cerebral vascular accident) Alcoholism Kidney disease Grandmother Diabetes Cancer Arthritis Breast cancer Obesity Father Arthritis Diabetes Obesity Mother Hypertension Diabetes Arthritis Obesity Cancer Surgical History History of tonsillectomy H/O adenoidectomy H/O myringotomy H/O fasciotomy History of elbow surgery H/O knee surgery H/O tubal ligation Social History Smoking Status: Never smoker alcohol intake: current alcohol intake frequency: holidays/special occasions only substance use type: does not use what type of physical activity do you participate in: walking ROS Constitutional Constitutional: Denies fatigue, fever(s), poor appetite, weight gain or weight loss Gastrointestinal Gastrointestinal: Denies belching, bloating, change in bowel habits, change in stool character, chewing difficulty, coffee ground emesis, constipation, cramping, diarrhea, dyspepsia, dysphagia, early satiety, excessive flatus, fecalincontinence, heartburn, hematemesis, hematochezia, hemorrhoids, loose stools, melena, nausea, odynophagia, rectal bleeding, tenesmus, vomiting or weight changes Vital Signs Vital Signs Vital Signs: 03/28/25 12:01 03/28/25 12:01 Temperature 97.3 F L Temperature Source Temporal Pulse Rate 77 Respiratory Rate 18 Respiratory Pattern Normal Blood Pressure 127/90 H Blood Pressure Mean 102 Blood Pressure Source Monitor Blood Pressure Position Semi-Fowlers Blood Pressure Location Right Arm Pulse Ox 98 Oxygen Delivery Method Room Air Weight Weight: 189 lb 9.561 oz Body Mass Index (BMI) 31.5 Physical Exam Const alert, oriented x3, no apparent distress and healthy appearing General Appearance: cooperative GI normal to inspection, nondistended, normoactive bowel sounds, soft to palpation,non-tender and non-distended Percussion: normal to percussion Rectal Exam: deferred Assessment & Plan Assessment/Plan (1) Dysphagia: QUALIFIERS: Dysphagia type: esophageal phase Qualified Code(s): R13.19 - Other dysphagia (2) Epigastric pain: (3) Nausea: PLAN: Assessment and Plan Assessment and Plan (1) Dysphagia: Status: Acute Qualifiers: Dysphagia type: esophageal phase Qualified Code(s): R13.19 - Other dysphagia (2) Epigastric pain: Status: Acute (3) Nausea: Status: Acute Medications: New sucralfate (Carafate) 1 g PO QACHS PRN 60 tabs 0RF epigastric pain Plan 44y/o female presents for initial consultation with complaints of epigastric/LUQabdominal pain >1 year. She reports since starting pantoprazole 40mg daily, painhas decreased from constant to a few days a month. Nausea is intermittent and denies any emesis. She had noted improvement in acute symptoms with sucralfate in the past and will use PRN. She reports a long history of upper esophageal dysphagia with solid foods, able to clear obstruction with liquid flush. I have scheduled her for an EGD. She will follow-up in the office post procedure. Note: mDialog speech recognition stock holder software was used to create portions of this document. Sound-alike and misspelled words, as well as other stock holder errors may be contained in the documentation. Patient Instructions: Continue pantoprazole 40mg daily Sucralfate PRN 03/28/25 1224 <Electronically signed by Bowen Rodgers DO> Cosigner Signature (if applicable): CC: Dr. Kb Silver MD; Bowen Rodgers DO~ Signed [facility] Work Phone: Reason for referral (narrative)* Diagnostic Procedure Only (Routine) - Pending Review Specialty Diagnoses / Procedures Referred By Jordana kirkland Referred To Contact [facility] Diagnoses Encounter for screening mammogram for breast cancer Procedures BONY SCREENING SCREENING MAMMOGRAPHY BI 2-VIEW BREAST INC Kayla Trimble APRN.CNP [address] [place] [address] [facility] [address] [place] [address] Referral ID Status Reason Start Date Expiration Date Visits Requested Visits Authorized [id number] Pending Review Auto-Generat ed Referral 03/10/2022 04/09/2023 1 1 [facility] for referral (narrative)* Diagnostic Procedure Only (Routine) - Authorized Specialty Diagnoses / Procedures Referred By Jordana kirkland Referred To Contact [facility] Diagnoses Encounter for screening mammogram for breast cancer Procedures BONY SCREENING SCREENING MAMMOGRAPHY BI 2-VIEW BREAST INC CAD Kayla Cadet APRN.CNP [address] [place] [address] [facility] [address] [place] [address] Referral ID Status Reason Start Date Expiration Date Visits Requested Visits Authorized [id number] Authorized Auto-Generat ed Referral 10/02/2023 10/31/2024 1 1 [facility] for referral (narrative)No reason for referral information availableAnchor Point [facility] Work Phone: Reason for visit Narrative* Diagnostic Procedure Only (Routine) - Closed Specialty Diagnoses / Procedures Referred By Jordana kirkland Referred To Contact [facility] Diagnoses Encounter for screening mammogram for breast cancer Procedures BONY SCREENING SCREENING MAMMOGRAPHY BI 2-VIEW BREAST INC Kayla Trimble APRN.ACCOUNT SPECIALIST [address] [place] [address] Phone: tel: fax: [facility] [address] [place] [address] Referral ID Status Reason Start Date Expiration Date V isits Requested Visits Authorized [id number] Closed Auto-Generate d Referral 10/02/2023 10/31/2024 1 1 [facility] Summary Purpose Family History No Family History Records Found Relationship Condition Age at Onset Recorded Date/T brian aunt Malignant neoplasm Unknown brother Hypertension Unknown Obesity Unknown grandfather Coronary artery disease Unknown Hypertension Unknown Arthritis Unknown Cerebrovascular accident (CVA) Unknown Alcoholism Unknown Kidney disorder Unknown grandmother Diabetes mellitus Unknown Malignant neoplasm Unknown Malignant neoplasm of breast Unknown father Arthritis Unknown Diabetes mellitus Unknown mother Hypertension Unknown Advance Directives No Advanced Directives Records Found Advance Directive Response Recorded Date/ Time Do you have a Healthcare Power of Refueling Ramp Supervisor? No March 25, 2025 10:13am Chief Complaint and Reason for Visit Chief Complaint Admit Date ABDOMINAL ISSUES January 23, 2025 8:37a m Reason for Visit Admit Date Dysphagia January 23, 2025 8:37a m Epigastric pain January 23, 2025 8:37a m Nausea January 23, 2025 8:37a m Dysphagia March 28, 2025 11: 44am Epigastric pain March 28, 2025 11: 44am Nausea March 28, 2025 11: 44am Additional Source Comments Source Comments (unrecognize d section and content) In the event this informatio n is protected by the Federal Confidentiality of Alcohol and Drug Abuse Patient Records regulations: The Federal rules restrict any use of the information to criminally investigate or prosecute any alcohol or drug abuse patient.[facility] the event this information is protected by the Federal Confidentiality of Alcohol and Drug Abuse Patient Records regulations: The Federal rules restrict any use of the information to criminally investigate or prosecute any alcohol or drug abuse patient.[facility] HospitalIn the event this information is protected by the Federal Confidentiality of Alcohol and Drug Abuse Patient Records regulations: The Federal rules restrict any use of the information to criminally investigate or prosecute any alcohol or drug abuse patient.[facility] HospitalIn the event this information is protected by the Federal Confidentiality of Alcohol and Drug Abuse Patient Records regulations: The Federal rules restrict any use of the information to criminally investigate or prosecute any alcohol or drug abuse patient.[facility] Hospital[facility] the event this information is protected by the Federal Confidentiality of Alcohol and Drug Abuse Patient Records regulations: The Federal rules restrict any use of the information to criminally investigate or prosecute any alcohol or drug abuse patient.[facility] HospitalIn the event this information is protected by the Federal Confidentiality of Alcohol and Drug Abuse Patient Records regulations: The Federal rules restrict any use of the information to criminally investigate or prosecute any alcohol or drug abuse patient.[facility] HospitalIn the event this information is protected by the Federal Confidentiality of Alcohol and Drug Abuse Patient Records regulations: The Federal rules restrict any use of the information to criminally investigate or prosecute any alcohol or drug abuse patient.[facility] HospitalIn the event this information is protected by the Federal Confidentiality of Alcohol and Drug Abuse Patient Records regulations: The Federal rules restrict any use of the information to criminally investigate or prosecute any alcohol or drug abuse patient.[facility] Reason for Visit (unrecogniz ed section and content) Reason Comments Well Woman Reason Comments Sinus Problem Sinus pressure, gree n drainage, runny nose, cough x 3-4 days 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 Aniket Argueta DO Family Provider Active Dr. Kb Silver MD Primary Care Provider Acti ve Team Status: Inactive Member Role Status Dates Dr. Kb Silver MD Primary Care Provider Acti ve Start: January 23, 2025 End: January 23, 2025 Dr. Kb Silver MD Referring Provider Active Start: January 23, 2025 End: January 23, 2025 BHAVANI Deutsch Attending Provider Active Start: January 23, 2025 End: January 23, 2025 Team Status: Active Member Role/Relationship Status Dates Dr. Kb Silver MD Primary Care Provider Acti ve Team Status: Inactive Member Role/Relationship Status Dates Dr. Kb Silver MD Primary Care Provider Acti ve Start: January 23, 2025 End: January 23, 2025 Dr. Kb Silver MD Referring Provider Active Start: January 23, 2025 End: January 23, 2025 BHAVANI Deutsch Attending Provider Active Start: January 23, 2025 End: January 23, 2025 Team Status: Inactive Member Role/Relationship Status Dates Dr. Kb Silver MD Primary Care Provider Acti ve Start: March 28, 2025 End: March 28, 2025 Dr. Kb Silver MD Referring Provider Active Start: March 28, 2025 End: March 28, 2025 Dr. Bowen Rodgers DO Attending Provider Active Start: March 28, 2025 End: March 28, 2025 Team Status: Active Member Role/Relationship Status Dates Dr. Kb Silver MD Primary Care Provider Acti ve Start: March 28, 2025 Dr. Kb Silver MD Referring Provider Active Start: March 28, 2025 Dr. Bowen Rodgers DO Attending Provider Active Start: March 28, 2025 Dr. Bowen Rodgers DO Other Provider Active St art: March 28, 2025 Goals (unrecognized section and content) Goals may be documented in a n alternate section FOR RECORDS PERTAINING TO PATIENTS WHO ARE OR HAVE BEEN ENROLLED IN A CHEMICAL DEPENDENCY/SUBSTANCEABUSE PROGRAM, SOME INFORMATION MAY BE OMITTED. This clinical summary was aggregated from multiple sources. Caution should be exercised in using it in the provision of clinical care. This summary normalizes information from multiple sources, and as a consequence, information in this document may materially change the coding, format and clinical context of patient data. In addition, data may be omitted in some cases. CLINICAL DECISIONS SHOULD BE BASED ON THE PRIMARY CLINICAL RECORDS. [employer] provides no warranty or guarantee of the accuracy or completeness of information in this document.
== END 2025-04-05 01:18 | disposition home or self-care (01) ==
PROVIDERS: Emergency Provider Emergency Medicine; PCP Family Medicine; Visit Provider Emergency Medicine
DX: S00.33XA Contusion of nose, initial encounter (principal); S60.032A Contusion of left middle finger without damage to nail, initial encounter; S80.212A Abrasion, left knee, initial encounter; W01.190A Fall on same level from slipping, tripping and stumbling with subsequent striking against furniture, initial encounter; R04.0 Epistaxis
CPT/HCPCS: 73140; 99283